=== PATIENT | female | born 1975 | race Caucasian/White ===

== ENCOUNTER → 2023-02-19 16:01 | Outpatient (BNVA) | payer OTHER, SELFPAY | PROVIDERS: PCP Student in an Organized Health Care Education/Training Program; Visit Provider Physician Assistant ==

== ENCOUNTER → 2023-03-04 08:12 | Outpatient (BNVA) | payer OTHER, SELFPAY | PROVIDERS: PCP Student in an Organized Health Care Education/Training Program; Visit Provider Surgery ==

== ENCOUNTER 2023-03-05 09:40 | Outpatient (REF) | payer OTHER, SELFPAY ==
--- NOTE | ~2023-03-05 | XR_ITS ---
EXAMINATION: XR CHEST CLINICAL INFORMATION: Reason for Exam E66.01 - Morbid (severe) obesity due to excess calories COMPARISON: None TECHNIQUE: 2 views of the chest FINDINGS: Lines and tubes: None. Clear lungs. No pleural effusion. No pneumothorax. Ectatic thoracic aorta. Normal cardiac silhouette. XR/XR chest 2V IMPRESSION: 1. Clear lungs. 2. Ectatic thoracic aorta.
--- NOTE | 2023-03-05 09:47 | ECG_ITS ---
Test Reason : E66.01 - Morbid (severe) obesity due to excess calories Blood Pressure : / mmHG Vent. Rate : 091 BPM Atrial Rate : 091 BPM P-R Int : 140 ms QRS Dur : 078 ms QT Int : 342 ms P-R-T Axes : 064 057 045 degrees QTc Int : 420 ms Normal sinus rhythm Normal ECG No previous ECGs available Referred By: Germán Keith Electronically Signed By:TABATHA HESS
[2023-03-05 10:10] LABS: MANUAL DIFF FLAG NO
[2023-03-05 11:09] LABS: Basophils Absolute Auto 0.1 X10*3/uL (0.0-0.2); Basophils Percent Auto 0.8 % (0-2); Eosinophils Absolute Auto 0.1 X10*3/uL (0.0-0.4); Eosinophils Percent Auto 2.2 % (0-4); Hematocrit 43.8 % (37.0-47.0); Hemoglobin 14.6 g/dl (12.0-16.0); Imm Gran Abs Auto 0.05 X10*3/uL (0.00-0.03); Imm Gran Pct Auto 0.8 % (0.0-0.4); Lymphocytes Absolute Auto 2.4 X10*3/uL (1.2-4.9); Lymphocytes Percent Auto 36.8 % (20-40); Mean Corpuscular HGB Conc 33.3 g/dl (31.0-35.0); Mean Corpuscular Hemoglobin 30.2 pg (27.0-33.0); Mean Corpuscular Volume 90.5 fL (80.0-98.0); Mean Platelet Volume 9.4 fL (9.4-12.3); Monocytes Absolute Auto 0.5 X10*3/uL (0.1-1.2); Monocytes Percent Auto 8.5 % (2-11); Neutrophils Absolute Auto 3.3 x10*3/uL (2.0-8.3); Neutrophils Percent Auto 50.9 % (45-73); Platelet Count 273 X10*3/uL (160-400); Red Blood Count 4.84 X10*6/uL (4.20-5.50); Red Cell Distribution Width 12.5 % (11.0-16.0); White Blood Count 6.4 X10*3/uL (4.8-10.8)
[2023-03-05 11:17] LABS: Estimated Average Glucose 103 mg/dL; Hemoglobin A1c % 5.2 %
[2023-03-05 12:10] LABS: Alanine Aminotransferase 26 U/L (0-31); Albumin Level 4.4 g/dL (3.5-5.0); Alkaline Phosphatase 71 U/L (39-117); Anion Gap 13 (12-20); Aspartate Amino Transferase 21 U/L (5-31); Bilirubin Total 0.5 mg/dL (0.0-1.0); Blood Urea Nitrogen 13 mg/dL (9-16); C Reactive Protein 1.02 mg/dL (< or = 0.50); Calcium 9.6 mg/dL (8.4-10.2); Carbon Dioxide 25 mmol/L (22-29); Chloride 104 mmol/L (96-108); Cholesterol 222 mg/dL; Estimated Glomerular Filt Rate > 60; Glucose Random 94 mg/dL (60-115); HDL Cholesterol 56 mg/dL; Iron 136 mcg/dL (30-160); LDL Cholesterol Calculated 134 mg/dl; Percent Iron Saturation 41 % (15-50); Potassium 3.9 mmol/L (3.3-5.1); Sodium 138 mmol/L (135-145); Total Iron Binding Capacity 328 mcg/dL (228-428); Total Protein 7.8 g/dL (6.5-8.0); Triglycerides 160 mg/dL; Unsaturated Iron Binding 192 ug/dL
[2023-03-05 12:36] LABS: Ferritin 152 ng/mL (10-250); Insulin 23 uU/mL (2-29); Vitamin D 25-OH Total 18.3 ng/mL (>30)
[2023-03-05 12:42] LABS: Folate 11.4 ng/mL (> or = 4.0); Vitamin B12 290 pg/mL (200-900)
[2023-03-07 13:19] LABS: Calcium (PTHI) 9.1 mg/dL (8.6-10.2); PTHI 47 pg/mL (16-77)
[2023-03-10 02:49] LABS: Zinc 75 mcg/dL (60-130)
[2023-03-11 06:23] LABS: Vitamin B1 10 nmol/L (8-30)
[2023-03-13 01:03] LABS: Vitamin A 43 mcg/dL (38-98)
== END 2023-03-05 09:41 | disposition home or self-care (01) ==
LOC: HO.LAB 09:40
PROVIDERS: PCP Student in an Organized Health Care Education/Training Program; Visit Provider Surgery
DX: E66.01 Morbid (severe) obesity due to excess calories (principal); I10 Essential (primary) hypertension; J45.909 Unspecified asthma, uncomplicated; K21.9 Gastro-esophageal reflux disease without esophagitis
CPT/HCPCS: 36415; 71046; 80053; 80061; 82306; 82607; 82728; 82746; 83036; 83525; 83540; 83970; 84425; 84443; 84590; 84630; 85025; 86140; 93005

== ENCOUNTER 2023-03-11 10:08 | Outpatient (REF) | payer OTHER, SELFPAY ==
--- NOTE | ~2023-03-11 | FL_ITS ---
EXAMINATION: XR FLUOROSCOPY UPPER GI WITH AIR CLINICAL INFORMATION: Obesity COMPARISON: None available. TECHNIQUE: Upper GI was performed using thin and thick barium and effervescent granules FINDINGS: Esophageal motility is normal. No hernia or reflux. The stomach and duodenum are normal. No fold thickening, mass, ulcer or stricture. FLUOROSCOPY TIME: 0.3 minutes DOSE AREA PRODUCT: 3.4 jensen per centimeter squared. Total dose 50 mg. 19 saved fluoroscopic images. FL/FL upper GI w air IMPRESSION: Unremarkable examination.
== END 2023-03-11 10:09 | disposition home or self-care (01) ==
LOC: HO.XRAY 10:08
PROVIDERS: Visit Provider Surgery
DX: E66.01 Morbid (severe) obesity due to excess calories (principal); K21.9 Gastro-esophageal reflux disease without esophagitis; I10 Essential (primary) hypertension; J45.909 Unspecified asthma, uncomplicated
CPT/HCPCS: 74246

== ENCOUNTER 2023-03-18 16:14 | Outpatient (AMB) | payer OTHER, SELFPAY ==
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
== END 2023-03-22 11:56 | disposition home or self-care (01) ==
LOC: HO.HBST 16:14
PROVIDERS: PCP Student in an Organized Health Care Education/Training Program; Visit Provider Counselor Mental Health
DX: F43.10 Post-traumatic stress disorder, unspecified (principal); E66.01 Morbid (severe) obesity due to excess calories; Z68.41 Body mass index [BMI] 40.0-44.9, adult
CPT/HCPCS: 90791

== ENCOUNTER → 2023-03-18 16:14 | Outpatient (BNVA) | payer OTHER, SELFPAY | PROVIDERS: PCP Student in an Organized Health Care Education/Training Program; Visit Provider Counselor Mental Health ==

== ENCOUNTER 2023-03-25 07:30 | Outpatient (REF) | payer OTHER, SELFPAY ==
--- NOTE | ~2023-03-25 | US_ITS ---
EXAMINATION: US COMPLETE ABDOMEN WITH LIVER ELASTOGRAPHY CLINICAL INFORMATION: Morbid obesity. COMPARISON: None available. TECHNIQUE: Real-time imaging of the abdominal viscera. Noninvasive ultrasound liver fibrosis assessment is performed using Wayne ElastPQ point quantification shear wave elastography (2D-SWE) with a C5-2 MHz transducer. Multiple elastography samples are obtained. FINDINGS: PANCREAS: Normal. The visualized pancreatic head and body are normal in appearance. The remainder of the pancreas is obscured from visualization by the overlying bowel gas. ABDOMINAL AORTA: The proximal, middle, and distal aortic segments are normal in caliber. INFERIOR VENA CAVA: Visualized portions are normal. LIVER: The liver demonstrates upper normal size, and normal contour and increased echogenicity. No focal lesion or intrahepatic biliary duct dilatation. The right lobe measures 16.9 cm in length. The left lobe measures 10.6 cm in length. Portal flow is towards the liver (hepatopetal). Shear wave liver elastography median stiffness is 1.52 m/s (reference: normal median stiffness is 1.3 m/s or less). IQR/median stiffness to assess sampling precision is 0.07 (reference: good quality data set is IQR/median stiffness of 0.15 or less). GALLBLADDER: Surgically absent. COMMON BILE DUCT: Normal in caliber measuring 0.4 cm in diameter. RIGHT KIDNEY: Normal. No hydronephrosis. No renal calculi or focal parenchymal lesions. The kidney measures 11.1 cm in maximum dimension. LEFT KIDNEY: Normal. No hydronephrosis. No renal calculi or focal parenchymal lesions. The kidney measures 11.1 cm in maximum dimension. SPLEEN: Normal. The spleen measures 10.0 cm in maximum dimension. FREE FLUID: None. US/US abdomen comp w elastography IMPRESSION: 1. There is generalized increase in hepatic echotexture, consistent with fatty infiltration or hepatocellular disease. Please correlate clinically. No focal hepatic mass or intrahepatic biliary dilatation is seen. 2. Liver elastography: In the absence of other known clinical signs, measurements rule out compensated advanced chronic liver disease. If there are known clinical signs, further testing may be needed for confirmation. 3. The gallbladder is surgically absent. REFERENCE: Society of Radiologists in Ultrasound Liver Stiffness Thresholds (2020): LIVER STIFFNESS THRESHOLDS: *Liver Stiffness equal or less than 1.3 m/s: High probability of being normal. *Liver Stiffness less than 1.7 m/s: In the absence of other known clinical signs, rules out compensated advanced chronic liver disease. *Liver Stiffness 1.7-2.1 m/s: Suggestive of compensated advanced chronic liver disease but need further test for confirmation. *Liver Stiffness over 2.1 m/s: Rules in compensated advanced chronic liver disease. *Liver Stiffness over 2.4 m/s: Suggestive of clinically significant portal hypertension. QUALITY OF DATA SET: *IQR/Median value equal or less than 0.15 implies a quality data set. *IQR/Median value over 0.15 implies a poor quality data set. SIGNIFICANT CHANGE FROM PRIOR EXAM: Significant change if liver stiffness measurement is 10% or greater from prior exam. OTHER CONSIDERATIONS: The stage of liver fibrosis may be overestimated in the setting of acute hepatitis, liver inflammation, elevated liver function tests, hepatic vascular congestion, obstructive cholestasis, non-fasting state, and infiltrative diseases such as amyloidosis and lymphoma. In some patients with NAFLD, the liver stiffness thresholds for compensated advanced chronic liver disease may be lower. In causes other than viral hepatitis and NAFLD, liver stiffness thresholds are not well established.
[2023-03-28 09:09] LABS: H Pylori Breath Test Negative (Negative)
== END 2023-03-25 07:31 | disposition home or self-care (01) ==
LOC: HO.US 07:30
PROVIDERS: PCP Student in an Organized Health Care Education/Training Program; Visit Provider Surgery
DX: Z11.2 Encounter for screening for other bacterial diseases (principal); E66.01 Morbid (severe) obesity due to excess calories; I10 Essential (primary) hypertension; J45.909 Unspecified asthma, uncomplicated; K21.9 Gastro-esophageal reflux disease without esophagitis
CPT/HCPCS: 36415; 76705; 76981; 83013; 99211

== ENCOUNTER 2023-03-25 15:53 | Outpatient (AMB) | payer OTHER, SELFPAY ==
[2023-03-25 16:08] VITALS: BP 138/81; PULSE 93; TEMP 36.1; O2SAT 98
--- NOTE | 2023-03-25 16:08 | MHC.NURWM ---
Intake VS Expanded 03/25/23 16:08 Height 5 ft 1.5 in BP 138/81 Blood Pressure Location Lt brachial Blood Pressure Position Left Lateral Pulse 93 Pulse Source Pulse Oximeter Temp 96.9 F Temperature Source Temporal Artery Scan Pulse Oximetry 98 Oxygen Delivery Method Room Air Intake Visit Reasons: H. Pylori Intake Note: Patient presents for collection of H Pylori breath test. Patient has been fasting for 1 hour (nothing to eat, drink, no chewing gum or smoking) has not taken any antacid medication for at least 2 weeks and has no allergies to artificial sweeteners.?? Allergies No Known Allergies Allergy (Verified 03/25/23 16:17) Nursing Note Patient presents for collection of H Pylori breath test. Patient has been fasting for 1 hour (nothing to eat, drink, no chewing gum or smoking) has not taken any antacid medication for at least 2 weeks and has no allergies to artificial sweeteners.???This test checks for an overgrowth of bacteria in your stomach. We all have bacteria but some may have more than others. It is treatable. if the test comes back negative there is nothing else to do. If the test result is positive we will treat you with 2 antibiotics and a medication to decrease the acid in your stomach (PPI) for 2 weeks. Two weeks after you have completed the treatment we will retest you to make sure the overgrowth has resolved. H pylori education: Process for specimen collection and reason for testing was explained to the patient. Specimen collection. Patient instructed to take a deep breath and then exhale into the blue bag, filling it up as much as possible. Patient instructed to drink a mixture of water and the artificial sweetener with a straw. A 15 minute wait period was observed. Patient instructed to take a deep breath and then exhale into the pink bag, filling it up as much as possible.? Coding Level of Care Code Est Pt Level 1 (18060) Diagnoses
== END 2023-03-25 16:18 | disposition home or self-care (01) ==
PROVIDERS: PCP Student in an Organized Health Care Education/Training Program; Visit Provider Physician Assistant Surgical
DX: Z00.00 Encounter for general adult medical examination without abnormal findings (principal)

== ENCOUNTER 2023-03-27 15:45 | Outpatient (AMB) | payer OTHER, SELFPAY ==
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
[2023-03-27 16:37] VITALS: BMI 42.6
== END 2023-03-27 16:36 | disposition home or self-care (01) ==
LOC: HO.HBS 16:22
PROVIDERS: PCP Student in an Organized Health Care Education/Training Program; Visit Provider Dietitian, Registered
DX: E66.01 Morbid (severe) obesity due to excess calories (principal)

== ENCOUNTER → 2023-03-27 15:45 | Outpatient (BNVA) | payer OTHER, SELFPAY | PROVIDERS: PCP Student in an Organized Health Care Education/Training Program; Visit Provider Dietitian, Registered | DX: E66.01 Morbid (severe) obesity due to excess calories (principal); Z71.3 Dietary counseling and surveillance | CPT/HCPCS: 97802 ==

== ENCOUNTER 2023-04-01 15:37 | Outpatient (AMB) | payer OTHER, SELFPAY ==
--- NOTE | 2023-04-01 10:52 | A.OFFVIS_ITS ---
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: No Allergies No Known Allergies Allergy (Verified 03/25/23 16:17) Medication List - Last Reconciled 04/01/23 by JENNIFER Ambriz albuterol sulfate 0.63 mg inhalation QID PRN cholecalciferol (vitamin D3) 125 mcg PO DAILY duloxetine 30 mg PO DAILY fluticasone furoate-vilanterol 100-25 mcg/dose (Breo Ellipta) 1 inh inhalation DAILY fluticasone propionate 50 mcg/actuation (Allergy Relief (fluticasone)) 1 spray intranasal BID gabapentin 300 mg PO DAILY ipratropium-albuterol 20-100 mcg/actuation (Combivent Respimat) 1 puff inhalation Q6H loratadine (Allergy Relief (loratadine)) 10 mg PO DAILY lorazepam 1 mg PO BEDTIME PRN losartan 50 mg PO DAILY mecobalamin (vitamin B12) 1,000 mcg sublingual DAILY montelukast 10 mg PO DAILY norethindrone-e.estradiol-iron 1 mg-10 mcg (24)/10 mcg (2) (Lo Loestrin Fe) 1 tab PO DAILY pantoprazole 20 mg PO DAILY HPI HPI Comments History of Present Illness Details 47 yo female returns to the office for pre-op planning She did not weight herself today. Weight from last week was 229.2 initial weight on 03/04/23 was 238.6 with a BMI of 44.3 Weight loss of 9.4 pounds or 4 % TBWL She states things are going well. She did have one episode of dietary indiscretion while on vacation last week. She states she was sometimes eating the last bar and sometimes not, but since returning from her vacation, she finds she is eating it. Discussed sticking to the plan. She will text me later this week to let me know if she does not want the last bar. Meal plan: 2 plant-based organic Orgain protein shakes (HALF scoop EACH in 8oz low fat unsweetened almond milk each) at 7am-9am and 10am-12pm, 2 protein bars (Zone Perfect protein bars) at 1pm-3pm, 4pm-6pm, dinner at 7pm (8 forks of protein and 8 forks of salad/vegetables) AND one more protein bar after dinner at 9pm-11pm. exercise plan: gym, treadmill, 5 days per week, 360 leixs per session. [facility] Medical History Anxiety Asthma Depression DJD (degenerative joint disease) GERD (gastroesophageal reflux disease) Hypertension Morbid obesity Surgical History Hx of cholecystectomy Hx of toe surgery Hx of wisdom tooth extraction Family History Mother Hypertension Osteoarthritis Father Diabetes Hypertension Son Asthma Son No problems noted. Social History Alcohol intake: current Alcohol intake frequency: holidays/special occasions only Patient Tobacco Use Status: Former Tobacco user Quit Date: 7YRS AGO Assessment & Plan Assessment & Plan (1) Morbid obesity: Code(s): E66.01 - Morbid (severe) obesity due to excess calories Plan: encouraged to be consistent with following the meal plan and to text me later this week to determine if she wants the last bar or not. if no bar, will adjust shakes Continue meal plan for now Encouraged to try both bike and elliptical to see if these will have less impact on her knees. reminded of upcoming appts Telehealth Telehealth Location of provider rendering services: practice address Location of patient: other Patient Identification confirmed using: Name, : Yes Telehealth method: video Patient verbally consented to treatment: Yes Patient verbally consented to billing insurance company: Yes Patient informed of any privacy concerns related to visit: Yes Minutes spent on Phone/Video with Pt.: 12 Coding Level of Care Code Tele Est Pt Level 3 (93483) Diagnoses Morbid obesity E66.01
[2023-04-01 14:17] VITALS: BMI 42.6
== END 2023-04-01 15:44 | disposition home or self-care (01) ==
LOC: HO.HBS 15:37
PROVIDERS: PCP Student in an Organized Health Care Education/Training Program; Visit Provider Physician Assistant Surgical
DX: E66.01 Morbid (severe) obesity due to excess calories (principal); Z68.41 Body mass index [BMI] 40.0-44.9, adult
CPT/HCPCS: 99213

== ENCOUNTER → 2023-04-01 15:37 | Outpatient (BNVA) | payer OTHER, SELFPAY | PROVIDERS: PCP Student in an Organized Health Care Education/Training Program; Visit Provider Physician Assistant Surgical ==

== ENCOUNTER 2023-04-11 15:23 | Outpatient (AMB) | payer OTHER, SELFPAY ==
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
== END 2023-04-11 16:18 | disposition home or self-care (01) ==
LOC: HO.HBST 15:23
PROVIDERS: PCP Student in an Organized Health Care Education/Training Program; Visit Provider Counselor Mental Health
DX: F43.10 Post-traumatic stress disorder, unspecified (principal); E66.01 Morbid (severe) obesity due to excess calories
CPT/HCPCS: 90832

== ENCOUNTER → 2023-04-11 15:23 | Outpatient (BNVA) | payer OTHER, SELFPAY | PROVIDERS: PCP Student in an Organized Health Care Education/Training Program; Visit Provider Counselor Mental Health ==

== ENCOUNTER 2023-04-24 08:09 | Outpatient (AMB) | payer OTHER, SELFPAY ==
--- NOTE | 2023-04-24 12:17 | MHC.OFFVISWM ---
Intake VS Expanded 04/24/23 12:22 Height 5 ft 1.5 in Weight 219 lb 6 oz BMI 40.8 Body Fat 122.7 Body Fat Percentage 55.9 Free Fat Mass 96.8 Visceral Mass 23 Water Mass 66.3 BMR 1,306 Intake Visit Reasons: TV Follow Up SWL Allergies No Known Allergies Allergy (Verified 03/25/23 16:17) HPI TV Follow Up SWL HPI Details Start time: 12pm, End time: 12.20pm ?I spent 15 minutes speaking with the patient on the phone plus an additional 5 minutes reviewing and updating records for a total of 20 minutes HPI Comments History of Present Illness Details Overall weight loss: 19lbs, or 7.96% TBWL Is doing 2 Orgain protein shakes (1/2 scoop in almond milk), 3 Zone Perfect protein bars and one meal (8 forks of protein and 8 forks of salad or vegetables) Exercise: is doing treadmill x5/wk for 400 calories PFSH Medical History Anxiety Asthma Depression DJD (degenerative joint disease) GERD (gastroesophageal reflux disease) Hypertension Morbid obesity Surgical History Hx of cholecystectomy Hx of toe surgery Hx of wisdom tooth extraction Family History Mother Hypertension Osteoarthritis Father Diabetes Hypertension Son Asthma Son No problems noted. Social History Alcohol intake: current Alcohol intake frequency: holidays/special occasions only Patient Tobacco Use Status: Former Tobacco user Quit Date: 7YRS AGO Physical Exam Vital Signs: BMI result Body Mass Index 40.8 Assessment & Plan Assessment & Plan (1) Morbid obesity: Code(s): E66.01 - Morbid (severe) obesity due to excess calories Plan: 1. Continue same nutritional plan of 2 Orgain protein shakes (1/2 scoop in almond milk), 3 Zone Perfect protein bars and one meal (8 forks of protein and 8 forks of salad or vegetables) 2. Exercise: continue treadmill x5/wk for 400 calories 3. Continue to send me weight measurements weekly on Tuesdays Telehealth Telehealth Location of provider rendering services: practice address Location of patient: address on file Patient Identification confirmed using: Name, : Yes Telehealth method: voice only Patient verbally consented to treatment: Yes Patient verbally consented to billing insurance company: Yes Patient informed of any privacy concerns related to visit: Yes Minutes spent on Phone/Video with Pt.: 20 Coding Level of Care Code Tele Est Pt Level 3 (89883) Diagnoses Morbid obesity E66.01 Time Spent (min) 20
[2023-04-24 12:22] VITALS: BMI 40.8
== END 2023-04-24 14:46 | disposition home or self-care (01) ==
LOC: HO.HBS 08:09
PROVIDERS: PCP Student in an Organized Health Care Education/Training Program; Visit Provider Surgery
DX: E66.01 Morbid (severe) obesity due to excess calories (principal); Z68.41 Body mass index [BMI] 40.0-44.9, adult
CPT/HCPCS: 99213

== ENCOUNTER → 2023-04-24 08:09 | Outpatient (BNVA) | payer OTHER, SELFPAY | PROVIDERS: PCP Student in an Organized Health Care Education/Training Program; Visit Provider Surgery ==

== ENCOUNTER 2023-05-22 08:00 | Outpatient (AMB) | payer OTHER, SELFPAY ==
--- NOTE | 2023-05-22 09:27 | A.OFFVIS_ITS ---
Intake VS Expanded 05/22/23 09:35 Height 5 ft 1.5 in Weight 207 lb 8 oz BMI 38.6 Body Fat 108.8 Body Fat Percentage 52.4 Free Fat Mass 98.8 Visceral Mass 21 Water Mass 67.7 BMR 1,328 Intake Visit Reasons: TV Follow Up SWL Allergies No Known Allergies Allergy (Verified 03/25/23 16:17) HPI TV Follow Up SWL HPI Details Start time: 9.18am, End time: 9.38am ?I spent 15 minutes speaking with the patient on the phone plus an additional 5 minutes reviewing and updating records for a total of 20 minutes HPI Comments History of Present Illness Details Overall weight loss: 30.8lbs, or 12.91% TBWL Is doing 2 Orgain protein shakes (1/2 scoop in 8oz almond milk), 3 Zone Perfect protein bars and one meal (8 forks of protein and 8 forks of salad or vegetables) Exercise: is doing treadmill (incline 2-8) for 400 calories for 5 days per week PFSH Medical History Anxiety Asthma Depression DJD (degenerative joint disease) GERD (gastroesophageal reflux disease) Hypertension Morbid obesity Surgical History Hx of cholecystectomy Hx of toe surgery Hx of wisdom tooth extraction Family History Mother Hypertension Osteoarthritis Father Diabetes Hypertension Son Asthma Son No problems noted. Social History Alcohol intake: current Alcohol intake frequency: holidays/special occasions only Patient Tobacco Use Status: Former Tobacco user Quit Date: 7YRS AGO Assessment & Plan Assessment & Plan (1) Obesity: Code(s): E66.9 - Obesity, unspecified Plan: 1. Plan for lap sleeve gastrectomy including upper GI endoscopy. All tests has been completed and reviewed and the patient is cleared for the surgery. ?If diaphragmatic or ventral hernias are present at time of surgery, these will be repaired laparoscopically as well. Risks and complications were discussed in detail including possible conversion to an open procedure, anastomotic leak, bleeding requiring transfusion, small bowel obstruction, , DVT and pulmonary embolism, cardiac, or pulmonary complications, as computer terminal operator com plications such as anastomotic ulcer, insufficient weight loss and vitamin deficiencies. I emphasized the importance of close follow-up, adherence to instructions and good communication. So far she has proven to be an excellent communicator and very compliant with all our directions accomplishing a great weight loss. I believe that she is an excellent candidate and she is ready. 2. Continue same nutritional plan of protein shakes (1/2 scoop in 8oz almond milk), 3 Zone Perfect protein bars and one meal (8 forks of protein and 8 forks of salad or vegetables) 3. Exercise: continue treadmill (increase incline to 3-9) for 400 calories for 5 days per week 4. Continue to send me weight measurements weekly on Tuesdays 5. Emphasized the importance of monitoring the blood pressure daily in am when wakes up and two more times throughout the day. If systolic blood pressure is 110 mmHg, or less I explained to the patient that needs to notify us. Also I explained the symptoms of orthostatic hypotension (dizziness and lightheadedness) for which the patient also needs to notify me. (2) BMI 39.0-39.9,adult: Code(s): Z68.39 - Body mass index [BMI] 39.0-39.9, adult Telehealth Telehealth Location of provider rendering services: practice address Location of patient: address on file Patient Identification confirmed using: Name, : Yes Telehealth method: voice only Patient verbally consented to treatment: Yes Patient verbally consented to billing insurance company: Yes Patient informed of any privacy concerns related to visit: Yes Minutes spent on Phone/Video with Pt.: 20 Coding Level of Care Code Tele Est Pt Level 3 (52226) Diagnoses Obesity E66.9 BMI 39.0-39.9,adult Z68.39 Time Spent (min) 20
[2023-05-22 09:35] VITALS: BMI 38.6
== END 2023-05-22 09:39 | disposition home or self-care (01) ==
LOC: HO.HBS 08:00
PROVIDERS: PCP Student in an Organized Health Care Education/Training Program; Visit Provider Surgery
DX: E66.9 Obesity, unspecified (principal); Z68.39 Body mass index [BMI] 39.0-39.9, adult
CPT/HCPCS: 99213

== ENCOUNTER → 2023-05-22 08:00 | Outpatient (BNVA) | payer OTHER, SELFPAY | PROVIDERS: PCP Student in an Organized Health Care Education/Training Program; Visit Provider Surgery ==

== ENCOUNTER 2023-06-19 08:01 | Outpatient (AMB) | payer OTHER, SELFPAY ==
--- NOTE | 2023-06-19 10:40 | MHC.OFFVISWM ---
Intake VS Expanded 06/19/23 10:54 Height 5 ft 1.5 in Weight 201 lb BMI 37.4 Body Fat % 50.3 Body Fat Mass 101.1 Fat Free Mass 99.8 Visceral Fat Rating 20 Body Water % 34.1 Body Water Mass 68.5 Basal Metabolic Rate/Score 1,352 Intake Visit Reasons: TV Pre Op LSG 07/04/23 Allergies No Known Allergies Allergy (Verified 06/19/23 10:41) Medication List - Last Reconciled 06/19/23 by Germán Keith MD cholecalciferol (vitamin D3) 125 mcg PO DAILY duloxetine 90 mg PO DAILY fluticasone furoate-vilanterol 100-25 mcg/dose (Breo Ellipta) 1 inh inhalation DAILY fluticasone propionate 50 mcg/actuation (Allergy Relief (fluticasone)) 1 spray intranasal DAILY gabapentin 300 mg PO BEDTIME ipratropium-albuterol 0.5 mg-3 mg(2.5 mg base)/3 mL 3 mL inhalation QID PRN ipratropium-albuterol 20-100 mcg/actuation (Combivent Respimat) 1 puff inhalation Q6H PRN loratadine (Allergy Relief (loratadine)) 10 mg PO DAILY lorazepam 1 mg PO BEDTIME losartan 50 mg PO DAILY mecobalamin (vitamin B12) 1,000 mcg sublingual DAILY montelukast 10 mg PO BEDTIME ondansetron 4 mg PO Q12H pantoprazole 40 mg PO DAILY polyethylene glycol 3350 (Miralax) 17 grams PO DAILY sucralfate 10 mL PO BID HPI TV Pre Op LSG 07/04/23 HPI Details Start time: 10.33am, End time: 11.07am ?I spent 29 minutes speaking with the patient on the phone plus an additional 5 minutes reviewing and updating records for a total of 34 minutes HPI Comments History of Present Illness Details Overall weight loss: 37.6lbs, or 15.76% TBWL Is doing 2 Orgain protein shakes (1/2 scoop in 8oz almond milk), 3 Zone Perfect protein bars and one meal (8 forks of meat and 8 forks of salad or vegetables) Exercise: Gym doing treadmill 5 days per week for 400 calories each time PFSH Medical History (Updated 06/19/23 @ 10:37 by Germán Keith MD) Arthritis Asthma DJD (degenerative joint disease) Anxiety Depression GERD (gastroesophageal reflux disease) Hypertension Morbid obesity Surgical History (Updated 06/12/23 @ 14:12 by June La RN) Hx of cholecystectomy Hx of wisdom tooth extraction Hx of toe surgery Family History Mother Hypertension Osteoarthritis Father Diabetes Hypertension Son Asthma Son No problems noted. Social History Alcohol intake: current Alcohol intake frequency: holidays/special occasions only Patient Tobacco Use Status: Former Tobacco user Quit Date: 7YRS AGO Assessment & Plan Assessment & Plan (1) Obesity: Code(s): E66.9 - Obesity, unspecified Plan: 1. Plan for lap sleeve gastrectomy including upper GI endoscopy. All tests has been completed and reviewed and the patient is cleared for the surgery. ?If diaphragmatic or ventral hernias are present at time of surgery, these will be repaired laparoscopically as well. Risks and complications were discussed in detail including possible conversion to an open procedure, anastomotic leak, bleeding requiring transfusion, small bowel obstruction, , DVT and pulmonary embolism, cardiac, or pulmonary complications, as intermediate complications such as anastomotic ulcer, insufficient weight loss and vitamin deficiencies. I emphasized the importance of close follow-up, adherence to instructions and good communication. So far she has proven to be an excellent communicator and very compliant with all our directions accomplishing a great weight loss. I believe that she is an excellent candidate and she is ready. 2. Preop prescriptions were provided and explained the purpose of each one. Need to be purchased preop. Start Pantoprazole now as you get it from the pharmacy, 1 pill per day. Sucralfate and Zofran are for after surgery as needed. 3. Bowel prep: please do 7 packets ?of Miralax mixing each one with a an 8oz glass of water, crystal light, gatorade zero, or propel ?on 07/02/23 and the same amount on 07/03/23. Continue the protein shakes during? the bowel prep. 4. Needs to purchase 1oz medicine cups . 5. Needs to purchase Children's liquid Tylenol for postop pain control. 6. She needs to stop the Gabapentin on 06/30/23. Avoid aspirin, motrin, Advil, Aleve, Ibuprofen, Naproxyn. Tylenol is OK. 7. She needs to purchase the Celebrate 4:1 protein shakes from the hospital's gift shop. 8. Will do basic preop blood work-up any day between Saturday06/24/23 and Saturday06/28/23 fasting for 12 hours and is scheduled to see the Anesthesiologist prior to the day of surgery. 9. Importance of adherence to postop folllow-up and recommendations was underscored and she understands that. 10. Stop food and bars as of Saturday06/26/23 and continue with 3 ORGAIN protein shakes (ONE scoop EACH in 8oz almond milk) at 8am-10am, 11am-1pm and 2pm-4pm AND TWO more ORGAIN protein shakes with TWO scoops in 8oz of almond milk at 5pm-7pm and 8pm-10pm 11. No soups, broths or V8 12. The patient's?medical?history has been reviewed and they are considered low risk for post op DVT and therefore DVT prophylaxis is not considered necessary. Travel after surgery was reviewed. The patient has not disclosed any travel plans during the first 30 days after surgery and they have been advised that within the first 30 days after surgery any bus, plane, train or car travel over 2 hours in duration is contraindicated due to the possibility of developing blood clots from immobility. Any travel, needs to include periods of ambulation of 10 minutes in duration every 2 hours.? Patient was instructed to discuss any plans for travel during this period with their bariatric surgeon.? 13. Please take at the day of surgery the following medications: LOSARTAN with a sip of water 14. Stop any control pills and don't use them for one month after surgery 15. Absolutely no smoking or vaping, or marijuana until the surgery and for at least the first 4 weeks. Only nicotine patches are allowed. 16. Send me weight measurements on 06/25/23 and then on 07/04/23, the day of surgery before you go to the hospital. 17. Avoid any steroids by mouth for any reason. Let me know if someone prescribes them to you (2) BMI 38.0-38.9,adult: Code(s): Z68.38 - Body mass index [BMI] 38.0-38.9, adult (3) Asthma: Code(s): J45.909 - Unspecified asthma, uncomplicated (4) Hypertension: Code(s): I10 - Essential (primary) hypertension (5) GERD (gastroesophageal reflux disease): Code(s): K21.9 - Gastro-esophageal reflux disease without esophagitis Orders: Orders TSH reflex Free T4 Today E66.9 - Obesity, unspecified, Z68.38 - Body mass index [BMI] 38.0-38.9, adult Prothrombin Time INR Today E66.9 - Obesity, unspecified, Z68.38 - Body mass index [BMI] 38.0-38.9, adult Type and Screen Today E66.9 - Obesity, unspecified, Z68.38 - Body mass index [BMI] 38.0-38.9, adult C Reactive Protein Today E66.9 - Obesity, unspecified, Z68.38 - Body mass index [BMI] 38.0-38.9, adult Lipid Panel Today E66.9 - Obesity, unspecified, Z68.38 - Body mass index [BMI] 38.0-38.9, adult Hemoglobin A1c Today E66.9 - Obesity, unspecified, Z68.38 - Body mass index [BMI] 38.0-38.9, adult Comprehensive Met. Panel Today E66.9 - Obesity, unspecified, Z68.38 - Body mass index [BMI] 38.0-38.9, adult Partial Thromboplastin Time Today E66.9 - Obesity, unspecified, Z68.38 - Body mass index [BMI] 38.0-38.9, adult Complete Blood Count Auto Diff Today E66.9 - Obesity, unspecified, Z68.38 - Body mass index [BMI] 38.0-38.9, adult Insulin Today E66.9 - Obesity, unspecified, Z68.38 - Body mass index [BMI] 38.0-38.9, adult Medications: New ondansetron 4 mg PO Q12H 20 tabs 0RF nausea and vomiting R11.0 - Nausea pantoprazole 40 mg PO DAILY 30 tabs 2RF K21.9 - Gastro-esophageal reflux disease without esophagitis sucralfate 10 mL PO BID 400 mL 2RF K21.9 - Gastro-esophageal reflux disease without esophagitis polyethylene glycol 3350 (Miralax) Mix each packet with 8oz of water, Crystal light, or Gatorade zero, or Propel and do 7 packets on 07/02/23 and another 7 packets on 07/03/23 17 grams PO DAILY 14 ea 0RF Z01.818 - Encounter for other preprocedural examination Telehealth Telehealth Location of provider rendering services: practice address Location of patient: address on file Patient Identification confirmed using: Name, : Yes Telehealth method: voice only Patient verbally consented to treatment: Yes Patient verbally consented to billing insurance company: Yes Patient informed of any privacy concerns related to visit: Yes Minutes spent on Phone/Video with Pt.: 34 Coding Level of Care Code Tele Est Pt Level 4 (45877) Diagnoses Obesity E66.9 BMI 38.0-38.9,adult Z68.38 Asthma J45.909 Hypertension I10 GERD (gastroesophageal reflux disease) K21.9 Time Spent (min) 34
[2023-06-19 10:54] VITALS: BMI 37.4
== END 2023-06-19 11:08 | disposition home or self-care (01) ==
LOC: HO.HBS 08:01
PROVIDERS: PCP Student in an Organized Health Care Education/Training Program; Visit Provider Surgery
DX: E66.9 Obesity, unspecified (principal); Z68.38 Body mass index [BMI] 38.0-38.9, adult; J45.909 Unspecified asthma, uncomplicated; I10 Essential (primary) hypertension; K21.9 Gastro-esophageal reflux disease without esophagitis
CPT/HCPCS: 99214

== ENCOUNTER → 2023-06-19 08:01 | Outpatient (BNVA) | payer OTHER, SELFPAY | PROVIDERS: PCP Student in an Organized Health Care Education/Training Program; Visit Provider Surgery ==

== ENCOUNTER 2023-06-26 07:33 | Outpatient (REF) | payer OTHER, SELFPAY ==
[2023-06-26 10:10] LABS: Alanine Aminotransferase 28 U/L (0-31); Albumin Level 4.3 g/dL (3.5-5.0); Alkaline Phosphatase 72 U/L (39-117); Anion Gap 14 (12-20); Aspartate Amino Transferase 21 U/L (5-31); Bilirubin Total 0.3 mg/dL (0.0-1.0); Blood Urea Nitrogen 15 mg/dL (9-16); C Reactive Protein 1.06 mg/dL (< or = 0.50); Calcium 9.9 mg/dL (8.4-10.2); Carbon Dioxide 21 mmol/L (22-29); Chloride 108 mmol/L (96-108); Cholesterol 227 mg/dL (<200); Estimated Glomerular Filt Rate > 60; Glucose Random 100 mg/dL (60-115); HDL Cholesterol 46 mg/dL (>40); LDL Cholesterol Calculated 157 mg/dL (<100); Potassium 3.9 mmol/L (3.3-5.1); Sodium 139 mmol/L (135-145); Total Protein 7.5 g/dL (6.5-8.0); Triglycerides 123 mg/dL (<150)
[2023-06-26 10:25] LABS: Insulin 20 uU/mL (2-29); TSH reflex Free T4 1.21 uIU/mL (0.32-4.0)
== END 2023-06-26 07:34 | disposition home or self-care (01) ==
LOC: HO.LAB 07:33
PROVIDERS: PCP Student in an Organized Health Care Education/Training Program; Visit Provider Surgery
DX: E66.9 Obesity, unspecified (principal); Z68.38 Body mass index [BMI] 38.0-38.9, adult
CPT/HCPCS: 36415; 80053; 80061; 83036; 83525; 84443; 85025; 85610; 85730; 86140

== ENCOUNTER 2023-07-04 06:07 | Inpatient (IN) | payer OTHER, SELFPAY ==
--- NOTE | 2023-06-29 22:16 | MHC.SHP ---
Pre-Procedural Eval Section A Date of Service: 06/29/23 The patient is an INPATIENT: No The History & Physical has been completed within 30 days and I have reviewed it.: Yes Section B Chief Complaint: Obesity, unspecified Relevant Family History (Specify if Yes): Yes Relevant Social History: None Present Medications: None Medical History: No relevant PMH History of Previous Operations: No relevant previous surgery Allergies: Allergies Allergy/AdvReac Type Severity Reaction Status Date / Time No Known Allergies Allergy Verified 06/19/23 10:41 Review of Systems Sugical H&P ROS: Negative: Constitution, Cardiovascular, Respiratory, Neurological, Psychiatric, Hem-Onc, Allergic/Immunologic, Gastrointestinal, Genitourinary, Musculoskeletal, Integumentary, Endocrine and Eyes/Ears/Nose/Throat Exam Surgical H&P Exam: Normal: HEENT, Normal: Heart, Normal: Lungs, Normal: Extremities, Normal: Abdomen, Normal: Skin and Normal: Neurological Plan Diagnosis/Plan: Unchanged I have reviewed the history and physical and performed a pertinent physical examination on my patient. No changes have occurred unless specified. Time Spent With Patient Time: Total time managing care of this patient today ____ minutes.
--- NOTE | 2023-07-03 10:27 | HO.ANESPROP2 ---
Documented by User: Rosa Hurt NP 07/03/23 10:30 HPI - Anesthesia Eval Consult details Narrative: 47yo F for Gastrectomy Sleeve, EGD, possible diaphragmatic hernia, possible ventral hernia, possible open PMFSH Active Problems Active Problems: All Active Problems (Updated 06/19/23 @ 10:37 by Germán Keith MD) BMI 38.0-38.9,adult (Acute) BMI 39.0-39.9,adult (Acute) Obesity (Acute) Post traumatic stress disorder (PTSD) (Acute) Vitamin B 12 deficiency (Acute) Vitamin D deficiency (Acute) Asthma (Acute) DJD (degenerative joint disease) (Acute) Anxiety (Acute) Depression (Acute) GERD (gastroesophageal reflux disease) (Acute) Hypertension (Acute) Morbid obesity (Acute) Past Medical History Medical History (Updated 07/04/23 @ 09:50 by Germán Keith MD) Arthritis Asthma DJD (degenerative joint disease) Anxiety Depression GERD (gastroesophageal reflux disease) Hypertension Morbid obesity Family History Family History Mother Hypertension Osteoarthritis Father Diabetes Hypertension Son Asthma Son No problems noted. Surgical History Surgical History (Updated 07/04/23 @ 09:57 by JENNIFER Ambriz) Hx of cholecystectomy Hx of wisdom tooth extraction Hx of toe surgery Social History Social History Household Members: None Housing: House Do you presently have visiting nurse or other home services: No Alcohol intake: current Alcohol intake frequency: holidays/special occasions only Patient Tobacco Use Status: Former Tobacco user Quit Date: 7YRS AGO Smoked in Last 30 Days: No Use of substances other than those prescribed or required for medical reasons: No Currently Displaying Signs/Symptoms of Drug Intoxication Withdrawal: No Have you been hit, kicked, punched, or otherwise hurt by someone within the past year? If so, by whom?: No Do you feel safe in your current relationship?: No Is there a partner from a previous relationship who is making you feel unsafe now?: No Are you made to feel afraid or neglected: No Are you DNR?: No Advance Directives: No Advance Directives Information Provided: Yes Do you have thoughts of harming others: None Do you have a plan to hurt others: No Plan Recently lost weight without trying: No Eating poorly because of decreased appetite: No Nutrition Risks: No Nutritional Risk Patient : No : No Poor oral hygiene: No Meds Allergies Allergy/AdvReac Type Severity Reaction Status Date / Time No Known Allergies Allergy Verified 07/04/23 06:16 Home Medications Medication Instructions Recorded Confirmed Last Taken Type duloxetine 30 mg capsule,delayed 90 mg PO DAILY 03/04/23 07/04/23 07/03/23 History release fluticasone furoate 100 1 inh inhalation DAILY 03/04/23 06/19/23 07/04/23 History mcg-vilanterol 25 mcg/dose inhalation powder (Breo Ellipta) fluticasone propionate 50 1 spray intranasal DAILY 03/04/23 07/04/23 07/03/23 History mcg/actuation nasal spray,suspension (Allergy Relief (fluticasone)) gabapentin 300 mg capsule 300 mg PO BEDTIME 03/04/23 07/04/23 06/29/23 History ipratropium 20 mcg-albuterol 100 1 puff inhalation Q6H PRN 03/04/23 07/04/23 07/04/23 History mcg/actuation mist for inhalation Shortness Of Breath (Combivent Respimat) loratadine 10 mg tablet (Allergy 10 mg PO DAILY 03/04/23 07/04/23 07/03/23 History Relief (loratadine)) lorazepam 1 mg tablet 1 mg PO BEDTIME 03/04/23 07/04/23 07/03/23 History losartan 50 mg tablet 50 mg PO DAILY 03/04/23 07/04/23 07/04/23 04:30 History montelukast 10 mg tablet 10 mg PO BEDTIME 03/04/23 07/04/23 07/03/23 History ipratropium 0.5 mg-albuterol 3 mg 3 ml inhalation QID PRN Shortness 06/12/23 06/19/23 Unknown History (2.5 mg base)/3 mL nebulization Of Breath Or Wheezing soln Exam Exam Date and Time: July 03, 2023 1027 Pertinent Lab Results Pertinent Lab Results: Laboratory Tests 06/26/23 08:00 Blood Type O Positive Antibody Screen NEGATIVE Laboratory Tests 06/26/23 08:07 WBC 6.5 Hgb 14.3 Hct 42.1 Plt Count 239 Sodium 139 Potassium 3.9 Chloride 108 Carbon Dioxide 21 L BUN 15 Creatinine 0.69 Narrative Narrative: EKG 02/2023 Vent. Rate : 091 BPM Atrial Rate : 091 BPM P-R Int : 140 ms QRS Dur : 078 ms QT Int : 342 ms P-R-T Axes : 064 057 045 degrees QTc Int : 420 ms Normal sinus rhythm Normal ECG No previous ECGs available Assessment and Plan Assessment Anesthesia Assessment: Chart Reviewed Documented by User: Phil Billy MD 07/04/23 18:02 [facility] Past Medical History Medical History (Updated 07/04/23 @ 09:50 by Germán Keith MD) Arthritis Asthma DJD (degenerative joint disease) Anxiety Depression GERD (gastroesophageal reflux disease) Hypertension Morbid obesity Functional capacity: independent ambulation Family History Family History Mother Hypertension Osteoarthritis Father Diabetes Hypertension Son Asthma Son No problems noted. Family history of problems with anesthesia: No Surgical History Surgical History (Updated 07/04/23 @ 09:57 by JENNIFER Ambriz) Hx of cholecystectomy Hx of wisdom tooth extraction Hx of toe surgery History of Problems with Anesthesia: No Social History Social History Household Members: None Housing: House Do you presently have visiting nurse or other home services: No Alcohol intake: current Alcohol intake frequency: holidays/special occasions only Patient Tobacco Use Status: Former Tobacco user Quit Date: 7YRS AGO Smoked in Last 30 Days: No Use of substances other than those prescribed or required for medical reasons: No Currently Displaying Signs/Symptoms of Drug Intoxication Withdrawal: No Have you been hit, kicked, punched, or otherwise hurt by someone within the past year? If so, by whom?: No Do you feel safe in your current relationship?: No Is there a partner from a previous relationship who is making you feel unsafe now?: No Are you made to feel afraid or neglected: No Are you DNR?: No Advance Directives: No Advance Directives Information Provided: Yes Do you have thoughts of harming others: None Do you have a plan to hurt others: No Plan Recently lost weight without trying: No Eating poorly because of decreased appetite: No Nutrition Risks: No Nutritional Risk Patient : No : No Poor oral hygiene: No Meds Allergies Allergy/AdvReac Type Severity Reaction Status Date / Time No Known Allergies Allergy Verified 07/04/23 06:16 Home Medications Medication Instructions Recorded Confirmed Last Taken Type duloxetine 30 mg capsule,delayed 90 mg PO DAILY 03/04/23 07/04/23 07/03/23 History release fluticasone furoate 100 1 inh inhalation DAILY 03/04/23 06/19/23 07/04/23 History mcg-vilanterol 25 mcg/dose inhalation powder (Breo Ellipta) fluticasone propionate 50 1 spray intranasal DAILY 03/04/23 07/04/23 07/03/23 History mcg/actuation nasal spray,suspension (Allergy Relief (fluticasone)) gabapentin 300 mg capsule 300 mg PO BEDTIME 03/04/23 07/04/23 06/29/23 History ipratropium 20 mcg-albuterol 100 1 puff inhalation Q6H PRN 03/04/23 07/04/23 07/04/23 History mcg/actuation mist for inhalation Shortness Of Breath (Combivent Respimat) loratadine 10 mg tablet (Allergy 10 mg PO DAILY 03/04/23 07/04/23 07/03/23 History Relief (loratadine)) lorazepam 1 mg tablet 1 mg PO BEDTIME 03/04/23 07/04/23 07/03/23 History losartan 50 mg tablet 50 mg PO DAILY 03/04/23 07/04/23 07/04/23 04:30 History montelukast 10 mg tablet 10 mg PO BEDTIME 03/04/23 07/04/23 07/03/23 History ipratropium 0.5 mg-albuterol 3 mg 3 ml inhalation QID PRN Shortness 06/12/23 06/19/23 Unknown History (2.5 mg base)/3 mL nebulization Of Breath Or Wheezing soln Exam Airway Mallampati Class: IV Loose/Missing/Broken Teeth: Yes Assessment and Plan Assessment Anesthesia Assessment: Anesthesia Plan Discussed Final Anesthetic Review Family History of Problems with Anesthesia: No History of Problems with Anesthesia: No NPO: Yes ASA Class: III Final Preanesthetic Review: Meds/Allgs Chart Reviewed, Consent Obtained/Reviewed and Anes Risks/Benef Reviewed Patient Risk: Intermediate Procedure Risk: Intermediate Anesthetic Plan Anesthetic Plan: GA and Agree w/ Assess. and Plan Disposition: Standard PACU
[2023-07-04] VITALS (10 sets, daily range): BP systolic 119–157; BP diastolic 56–88; PULSE 94–110; RESP 14–18; TEMP 36.2–36.5; O2SAT 96–100; BMI 34.6; BMI 37.3
--- OUTSIDE RECORDS SUMMARY | 2023-07-04 06:12 | XMS_ITS | Patient Health Record ---
Author Name Unknown Organization [address] [facility] Address [address] [facility] [address] [place] [address] ALLERGIES No Known Allergies REASON FOR REFERRAL No Information MEDICATIONS Medication SIG (Take, Route, Fr equency, Duration) Notes Start Date End Date Status Abilify 5 MG 1 tablet Orally Once a day Active PARoxetine HCl 30 MG 2 tablet in the mor anna Orally Once a day Active SOCIAL HISTORY Tobacco Use: Social History Observation Description Date Details (start date - stop date) Never Smoker NA - NA Sex Assigned At : Social History Observation Description Sex Assigned At Unknown Tobacco Use/Smoking Question Answer Notes Are you a nonsmoker Alcohol Screen (Audit-C) Question Answer Notes Did you have a drink containing alcohol in the p ast year? No Points 0 Interpretation Negative Tobacco use other than smoking: Question Answer Notes Are you an other tobacco user? No PLAN OF TREATMENT No Information Insurance Providers Payer Name Payer Address Payer Phone Subscriber Number Group Number Insured Name Patient Relationship to Insured Coverage Start Date Coverage End Date [facility] [address] [place] [address] [id number] Yolie Hoffmann Self - patient is the insured MEDICAL (GENERAL) HISTORY Medical History History ICD Code asthma anxiety depression weight gain Surgical History Surgery Date(Month/Year) wisdom teeth extraction cholecystectomy BIG surgery
[2023-07-04 06:44] LABS: UPreg QC Valid YES; Urine Pregnancy NEGATIVE (NEGATIVE)
[2023-07-04] MEDS: Lactated Ringers 1,000 ML 100 ML IVCONT ×3 (06:44→20:06)
[2023-07-04] MEDS: Lactated Ringers 1,000 ML 999 ML IV (06:44)
[2023-07-04] MEDS: Aprepitant 32 MG/4.4 ML VIAL IVPUSH (06:49)
--- NOTE | 2023-07-04 07:34 | P.BOP_ITS ---
Brief Operative Note Date of Service: 07/04/23 Pre-op diagnosis: Morbid obesity with comorbidities Post-op diagnosis: same Procedure: INITIAL PATIENT BMI ON PRESENTATION AT OUR OFFICE: 44.3 kg/m2 LAST BMI BEFORE SURGERY: 37.7 kg/m2 COMORBIDITIES: hypertension, DJD, GERD, asthma, depression, anxiety, liver steatosis, liver fibrosis ?The patient presented to the Weight Management Program with significant obesity that was negatively impacting the patient's comorbidities as listed above.? The program is a phased program with a special focus on preoperative medical weight management to promote substantial weight loss and prepare the patients for the second phase of the program: bariatric surgery. The patient participated in an intensive weekly lifestyle ?intervention and exercise program during which the patient ?has lost between the initial office visit and the last preoperative visit 41.8lbs, or 17.8% of initial actual body weight. It was deemed appropriate for the patient to now have bariatric surgery. In light of the current Covid-19 pandemic and the well documented strong association of obesity and increased risk of worse outcomes if infected with Covid-19 (REFERENCES: https://pubmed.ncbi.nlm.nih.gov/20248580/ ,? https://pubmed.ncbi.nlm.nih.gov/31706672/ ), any delay in undergoing bariatric surgery may lead to the patient's worsening health condition and increased?risk of more severe Covid-19 disease if infected. In addition a recent?study from [facility] published in [facility] on 09/11/2021 ([email or web address]) found that, among patients with obesity, substantial weight loss achieved with surgery was associated with improved outcomes of COVID-19 infection. The findings suggest that obesity can be a modifiable risk factor for the severity of COVID-19 infection. In addition, the patient met the BMI-criteria for bariatric surgery based on the BMI on initial presentation. The patient should not be penalized for achieving such weight loss because ?it is not sustainable long-term without surgical intervention and it was achieved in preparation for bariatric surgery ?under my direction and based on my published research ([email or web address] and? https://www.soard.org/article/[email or web address](00)82517-X/pdf ) ?that a 10% preo perative weight loss improves long-term weight loss after surgery and reduces perioperative complications.? Insurance carriers such as [facility] have endorsed my recommendations ?and have included in their policies criteria to include a 10% preoperative weight loss requirement. PROCEDURE: Esophago-gastroscopy, laparoscopic lysis of adhesions, laparoscopic sleeve gastrectomy and laparoscopic gastropexy INDICATIONS: This is a 47 year-old female who was electively scheduled for laparoscopic, possibly open sleeve gastrectomy. The risks and complications of the procedure were discussed with the patient in advance, particularly the possibility of ; pulmonary embolism; staple line leak; bleeding; GERD; cardiac, pulmonary, or renal complications; as well as long-term problems such as insufficient weight loss, vitamin deficiency, strictures, or ulcers. The patient understood all the risks, and was in agreement to proceed with surgery. DESCRIPTION OF PROCEDURE: After informed consent was obtained from the patient, the patient was given preoperative antibiotics, and was transferred to the operating room. After successful induction of general anesthesia, pneumatic compression devices were placed on both lower extremities. An upper endoscopy was performed next. The oropharynx and esophagus appeared to be within normal limits. There was no diaphragmatic hernia present consistent with the findings of the preoperative upper GI. The stomach was entered. Then after all fluid and air were suctioned and the stomach was fully decompressed, the scope was withdrawn and secured in the mid esophagus. The patient was then prepped and draped in the usual sterile manner, and abdominal access was established at the right upper quadrant with the Italo technique. A 12 mm blunt port was inserted, and the abdomen was insufflated with CO2 to a pressure of 15 mmHg. Under direct visualization, additional ports were placed, specifically two 5 mm Versi-step ports to the left upper quadrant, and a 5 mm Versi-Step port to the right upper quadrant. 1% lidocaine plain was used to infiltrate all port sites as well as all fascia defects. There were adhesions in the abdomen from previous laparoscopic cholecystectomy involving the omentum and the anterior abdominal wall. Those were lysed completely with the ultrasonic device. Following that, the patient was placed in a steep reverse Trendelenburg position. An additional 5 mm port was placed to the right flank for the Mediflex retractor that was used to retract the left lobe of the liver. The gastro-esophageal fat pad was opened with the ultrasonic device (Thunderbeat, Olympus) and the anterior esophagus and hiatus were exposed. The angle of His was opened with the ultrasonic device the fundus of the stomach from any diaphragmatic and splenic attachments. I then opened the gastrocolic ligament between the transverse colon and the greater curvature of the stomach with the ultrasonic device to enter the lesser sac and facilitate the ligation of the short gastric vessels. I started at a mid-point along the greater curvature and using the Thunderbeat, all short gastric vessels were divided all the way to the angle of His until the left candida was completely dissected at its entirety. I then divided the gastro-colic ligament distally to a distance of about 3-4 cm proximal to the pylorus.? The stomach was then divided transversely with two Endo SARI-45 purple and three SARI-60 articulating purple loads using the SIGNIA stapler and loads. Every effort was made that the gastric sleeve had a tubular shape and an even caliber throughout. Once the sleeve resection was completed, the staple line of the gastric sleeve was reinforced with Hemoclips. The resected stomach was retrieved without difficulty from the Italo port. A gastropexy was then performed in order to prevent postoperative GERD and partial gastric volvulus. Several interrupted 2.0 Surgidac sutures were placed between the sleeve's staple line and the previously divided greater omentum and gastro-colic ligament using the Endo-Stitch device. ?An upper endoscopy was performed. There was no narrowing at the GE junction. The scope was easily advanced all the way to the pylorus which was clearly visualized. There was no narrowing anywhere and the sleeve's caliber was even throughout. The sleeve's staple line was inspected and there was no evidence of ischemia, bleeding or dehiscence. At that point the gastroscope was withdrawn from the patient?s mouth while we were decompressing the bowel and the stomach from any remaining air. I looked into the lesser sac to see how the sleeve was situating and it was situating well. There was no bleeding from the staple line, spleen, or short gastric vessels. The Mediflex retractor was removed, and the undersurface of the liver was inspected and there was no bleeding. The patient was placed in supine position. I closed the fascial defect of the 12 mm port site with a figure of eight #1 Polysorb suture. Then 30cc Ropivacaine plain with 10 mg of Dexamethasone were used to infiltrate the fascial closure as well as all skin incisions. A total of 7ml Zynrelef was applied in the Moore wound. At this point, the abdomen was deflated, all ports were removed under direct vision, and no bleeding was noted from any of the port sites. The skin incisions were irrigated with saline and were closed with 4-0 absorbable monofilament sutures. Steri-Strips and OpSites were used to cover all incisions. The patient was extubated and was transferred in stable condition to the recovery room for further care. I was present and performed all houser parts of the procedure. Mr Mcgarry was the first grade teacher. There were no residents to assist with this case. Alberto Keith MD, PhD, FACS Surgeon: Germán Keith MD Anesthesia: GETA, local and other (TAP and 7ml Zynrelef) Was an Sql Database Programmer used for this Procedure?: No Sql Database Programmer: Jae Mcgarry Estimated blood loss (mL): 10 Urine output (mL): 0 (No Vaughan to record output) Pathology: other (Stomach) Condition: stable Disposition: PACU
--- NOTE | 2023-07-04 07:39 | PM.PNGS ---
Subjective Subjective Date of Service: 07/05/23 Interval history: Feels well. Mild incisional pain. She is tolerating phase 1 bariatric diet Physical Exam Vital Signs: Vital Signs: Last Vital Signs Temp 97.7 F 07/04/23 06:26 Pulse 101 H 07/04/23 06:26 Resp 18 07/04/23 06:26 BP 130/86 07/04/23 06:26 Pulse Ox 97 07/04/23 06:26 O2 Del Method Room Air 07/04/23 06:26 BMI result Body Mass Index 34.6 GI: Inspection: Yes normal to inspection, Yes incision (clean, dry and intact) and Yes obesity Palpation (GI): Soft to palpation Extrem: Right lower extremity: normal to inspection (no calf tenderness) Left lower extremity: normal to inspection (no calf tenderness) Objective Data Active Medications Albuterol Sulfate (Albuterol Sulfate (0.083%) 2.5 Mg/3 Ml Vial.Neb) 2.5 mg INHALE ONCE PRN PRN Reason: Shortness of Breath/Wheezing Lactated Ringer's (Lr) 1,000 mls @ 100 mls/hr IVCONT .Q10H [facility] Last Admin: 07/04/23 06:44 Dose: 100 mls/hr Documented By: HUONG Lactated Ringer's (Lr) 1,000 mls @ 999 mls/hr IV .Q1H1M [facility] Stop: 07/04/23 08:15 Last Admin: 07/04/23 06:44 Dose: 999 mls/hr Documented By: HUONG Labs 07/05/23 05:31 07/05/23 05:31 Labs: Laboratory Results - last 24 hr 07/04/23 06:15 Urine Test NEGATIVE Procedures Date of Service Date of Service: 07/05/23 Progress Note: A&P Assessment and plan (1) Obesity: Status: Acute Assessment and Plan: s/p laparoscopic sleeve gastrectomy, lysis of adhesions and gastropexy Doing well Will check am labs and if OK the patient will be discharged home (2) BMI 37.0-37.9, adult: Status: Acute (3) Hypertension: Status: Acute (4) GERD (gastroesophageal reflux disease): Status: Acute (5) Depression: Status: Acute (6) Anxiety: Status: Acute (7) Asthma: Status: Acute (8) DJD (degenerative joint disease): Status: Acute (9) Post traumatic stress disorder (PTSD): Status: Acute (10) Steatosis, liver: Status: Acute (11) Liver fibrosis: Status: Acute (12) Intra-abdominal adhesions: Status: Acute Time Spent With Patient Time: Total time managing care of this patient today ____ minutes. Quality Stroke Does the patient have a stroke diagnosis?: No VTE Prior VTE?: No VTE Risk Level:: Surgical - moderate VTE Device Contraindication: N/A - Device Ordered VTE Drug Contraindication: Treatment Not Indicated
--- NOTE | 2023-07-04 09:54 | P.DS_ITS ---
DS: Providers Provider Date of Service: 07/05/23 Date of admission: 07/04/23 06:07 Primary care physician: Rodri Maldonado DO DS: Diagnosis Discharge Diagnosis (1) Obesity: Status: Acute (2) BMI 37.0-37.9, adult: Status: Acute (3) Hypertension: Status: Acute (4) GERD (gastroesophageal reflux disease): Status: Acute (5) Depression: Status: Acute (6) Anxiety: Status: Acute (7) Asthma: Status: Acute (8) DJD (degenerative joint disease): Status: Acute (9) Post traumatic stress disorder (PTSD): Status: Acute (10) Steatosis, liver: Status: Acute (11) Liver fibrosis: Status: Acute (12) Intra-abdominal adhesions: Status: Acute DS: Summary Hospital Course Hospital Course: ADMITTING DIAGNOSIS: obesity, PTSD, anxiety, Depression, HTN ? DISCHARGE DIAGNOSIS: same, s/p laparoscopic sleeve gastrectomy ? PAST SURGICAL HISTORY: CCY, toe surgery ? PROCEDURE: upper endoscopy, laparoscopic sleeve gastrectomy ? DISCHARGE SUMMARY: ? History of Present Illness: ? The patient is a?47 year-old woman with a BMI of?44.3 kg/m2 and associated co- morbidities as described above. The patient had extensive work-up,lost?49.6 lbs preoperatively and was electively scheduled for laparoscopic, possible open sleeve gastrectomy and gastropexy. Risks and complications of the surgery were discussed with the patient in advance, particularly the possibility of , pulmonary embolism, anastomotic leak, bleeding, bowel injury, GERD, cardiac, renal or pulmonary complications. The patient understood all the risks and was in agreement with the surgical plan. ? Hospital Course: ? The patient underwent an uneventful laparoscopic sleeve gastrectomy with gastropexy on the day of admission. Postoperatively, the patient was transferred to the surgical floor. The patient received IV Acetaminophen and IV dilaudid for pain control. Patient was started on bariatric phase 1 diet POD #0. On postoperative day one, the patient was feeling well without nausea, vomiting, fevers, or tachycardia. The patient had some mild incisional pain and the abdomen was soft. ? On the morning of postoperative day one, the patient was continued on 1 ounce of water or ice every half hour. During the day, the patient did fairly well, having some incisional pain, but able to ambulate adequately and to tolerate liquids well. ? Since the patient is doing well, we decided that the patient was ready to be discharged. The patient was given instructions to follow-up with me next week and to call my office for any fever over 101, persistent abdominal pain, nausea, vomiting, GERD, symptoms of DVT such as calf tenderness, or leg swelling, or pulmonary embolism such as chest pain or shortness of breath. The patient was also instructed to drink 40-60 ounces of liquids per day using the 1-ounce cups. The patient had been given prescriptions for Tylenol for pain, Zofran prn for nausea, and pantoprazole and carafate previously. The patient was encouraged to ambulate and use the incentive spirometer. The patient was allowed to shower, but no baths, and encouraged to stay active at home. All of these instructions were given to the patient personally. All questions were answered and the patient understood all instructions, the instructions were also given to the patient in print. Time Spent with Patient Time attestation: Total time managing care of this patient today ____ minutes. Discharge coordination time: Less than 30 minutes Quality: Safe Use of Opioids Does Pt have an Active Cancer Diagnosis on the Problem List?: No Quality: Stroke Does the patient have a stroke diagnosis?: No Physical Exam Vital Signs: Vital Signs: Last Vital Signs Temp 97.7 F 07/04/23 06:26 Pulse 101 H 07/04/23 06:26 Resp 18 07/04/23 06:26 BP 130/86 07/04/23 06:26 Pulse Ox 97 07/04/23 06:26 O2 Del Method Room Air 07/04/23 06:26 BMI result Body Mass Index 34.6 DS: Data Data Completed and Pending Pending studies at discharge: Pending at discharge 07/04/23 09:01 Surgical [PTH] Routine Labs on day of discharge: Laboratory Results - last 24 hr 07/04/23 06:15 Urine Test NEGATIVE Discharge Plan Discharge Anticipated Discharge Date/Time: 07/05/23 10:56 Patient Disposition: Home, Self-Care Discharge Diagnosis: s/p llaparoscopic sleeve gastrectomy Referrals: Rodri Maldonado DO [Primary Care Provider] - 1 Week Discharge Medications: Continued ipratropium-albuterol 0.5 mg-3 mg(2.5 mg base)/3 mL solution for nebulization 3 ml inhalation QID PRN (Reason: Shortness Of Breath Or Wheezing) fluticasone propionate [Allergy Relief (fluticasone)] 50 mcg/actuation s pray,suspension 1 spray intranasal DAILY Rx Instructions: administer into each nostril montelukast 10 mg tablet 10 mg PO BEDTIME Combivent Respimat 20-100 mcg/actuation mist 1 puff inhalation Q6H PRN (Reason: Shortness Of Breath) fluticasone furoate-vilanterol [Breo Ellipta] 100-25 mcg/dose blister with device 1 inh inhalation DAILY duloxetine 30 mg capsule,delayed release(DR/EC) 90 mg PO DAILY lorazepam 1 mg tablet 1 mg PO BEDTIME Held losartan 50 mg tablet 50 mg PO DAILY Hold Instructions: Resume on 07/06/23. Check your blood pressure every evening and send it to Dr. Keith. Do not take the medication before you hear from Dr. Keith. Do not take the medication if your blood pressure is below 120/70 mmHg. Discontinued mecobalamin (vitamin B12) 1,000 mcg tablet,disintegrating 1,000 mcg sublingual DAILY Qty: 30 0RF cholecalciferol (vitamin D3) 125 mcg (5,000 unit) capsule 125 mcg PO DAILY Qty: 30 2RF gabapentin 300 mg capsule 300 mg PO BEDTIME loratadine [Allergy Relief (loratadine)] 10 mg tablet 10 mg PO DAILY Discharge Orders: Discharge Order (Routine); Ordered 07/05/23 Ordered By: Germán Keith Activity on Discharge: No heavy lifting Stand Alone Forms: Patient Portal Discharge page Care Plan Goals: weight loss Health Concerns: obesity Plan of Treatment: No tub baths, sex or returning to work until discussed at first post op appointment. No exercise, alcohol, tobacco or illegal drug use. Continue to use incentive spirometer hourly while awake. Walk in home for 5- 10 minutes every 2 hours during the first week. Follow all instructions in the bariatric handbook and call with any questions.Discharge Instructions 1. Please call your doctor or come back to the emergency room should any new symptoms arise. 2. You will receive a courtesy call from [facility] 24-48 hours after discharge. 3. Activity: abstain from alcohol, practice limited stair climbing, no bending, no driving, no exercise, no illicit substances, no lifting, no sex, no tub bath, no work. 4. Diet: continue as discussed with Dr. Keith. 5. Dressing Change/Wound Care: Your incision is covered by clear bandages and guaze underneath. If the area is tender, you may apply an ice pack for short intervals (no more than 20 minutes on, followed by at least 20 minutes off). Do not apply heat. Do not use creams, lotions, or topical antibiotics unless instructed to do so by your surgeon. These can cause infection or allergic reaction. 6. Call your doctor if: - Your temperature exceeds 101.5 F - You experience excessive pain or swelling - You have an unexpected reaction to medication - You have excessive bleeding - You experience continued vomiting/nausea - Your incision begins to separate - Your incision shows signs of infection such as increased redness, swelling, excessive pain, heat, or drainage (light blood or clear fluid is normal) 7. General instructions: No lifting greater than 5 lbs for 1 week and not more than 20lbs the next 3?weeks. No driving until seen at the office in 5-7 days after surgery. If you do not move your bowels in the next 2 days, please tell?Dr. Keith. Please walk around your home every hour or two to prevent blood clots from forming in your legs. You do not need to wake from sleeping to walk. Please sleep in a bed or couch to prevent kinking at the hips and knees. Please take your incentive spirometer (your lung pilot plant technician) home with you and use it for the next few days to prevent pneumonia. You may shower, no hot tubs, baths or swimming pools.?Please follow the post op diet instructions you are?given by Dr Americo talavera? and text me daily at 5-6pm for an update.?If you have any issues or concerns or questions please communicate this to him via text.? The Celebrate shakes have all of the bariatric vitamins you need if you consume these shakes. If you are drinking other protein shakes, you will need to purchase the Celebrate multivitamins and calcium that are available in the hospital gift shop on the first floor of the main hospital.??Do not take anything without first discussing with Dr Keith. Please make sure you are consuming at least 40 ounces of fluids per day starting the?day AFTER your discharge from the hospital. Always drink 1-2 ml per minute using the 5ml?syringe. If you drink faster you may experience?bloating,?gas pain, burping, nausea or heartburn. In that case please slow down your pace and use the syringe to?understand better the?proper?pace and volume of drinking. Do not hesitate to contact the office with any questions at . The patient's medical history has been reviewed and they are considered low risk for post op DVT and therefore DVT prophylaxis is not considered necessary. Travel after surgery was reviewed. The patient has not disclosed any travel plans during the first 30 days after surgery and they have been advised that within the first 30 days after surgery any bus, plane, train or car travel over 2 hours in duration is contraindicated due to the possibility of developing blood clots from immobility. Any travel, needs to include periods of ambulation of 10 minutes in duration every 2 hours.? The patient was instructed to discuss any plans for travel during this period with their bariatric surgeon. Assessment: stable s/p laparoscopic sleeve gastrectomy
[2023-07-04 10:53] LABS: Hematocrit 38.4 % (37.0-47.0); Hemoglobin 13.1 g/dl (12.0-16.0)
--- NOTE | 2023-07-04 10:53 | PHA.MEDREC ---
Pharmacy Consult ? Medication Reconciliation Pharmacy has completed the medication reconciliation. checked med rec done by nursing
[2023-07-04 11:02] LABS: Anion Gap 17 (12-20); Blood Urea Nitrogen 11 mg/dL (9-16); Calcium 9.7 mg/dL (8.4-10.2); Carbon Dioxide 21 mmol/L (22-29); Chloride 104 mmol/L (96-108); Creatinine Clr Calc Pharmacy 105.8; Estimated Glomerular Filt Rate > 60; Glucose Random 123 mg/dL (60-115); Potassium 3.9 mmol/L (3.3-5.1); Sodium 138 mmol/L (135-145)
[2023-07-04] MEDS: Acetaminophen 1,000 MG/100 ML PIGGYBACK 16.7 MG IV ×2 (11:34→17:38)
[2023-07-04] MEDS: ceFAZolin Sodium/Dextrose,Iso 2 GM/50 ML PIGGYBACK IV (14:05)
[2023-07-04] MEDS: Montelukast Sodium 10 MG TABLET PO (20:13)
[2023-07-04] MEDS: LORazepam 1 MG TABLET PO (20:13)
[2023-07-04] MEDS: Famotidine/PF 20 MG/2 ML VIAL IVPUSH (20:13)
[2023-07-05] MEDS: Acetaminophen 1,000 MG/100 ML PIGGYBACK 16.7 MG IV ×2 (00:24→06:31)
[2023-07-05 00:40] VITALS: BP 162/98; PULSE 78; RESP 18; TEMP 36.6; O2SAT 97
[2023-07-05 03:35] VITALS: BP 143/77; PULSE 78; RESP 18; TEMP 36.6; O2SAT 97
[2023-07-05] MEDS: Lactated Ringers 1,000 ML 100 ML IVCONT (05:27)
[2023-07-05 06:05] LABS: MANUAL DIFF FLAG NO
[2023-07-05 06:21] LABS: Anion Gap 16 (12-20); Blood Urea Nitrogen 7 mg/dL (9-16); Carbon Dioxide 20 mmol/L (22-29); Chloride 107 mmol/L (96-108); Creatinine Clr Calc Pharmacy 132.3; Estimated Glomerular Filt Rate > 60; Glucose Random 105 mg/dL (60-115); Sodium 139 mmol/L (135-145)
[2023-07-05 06:24] LABS: Basophils Percent Auto 0.2 % (0-2); Eosinophils Percent Auto 0.1 % (0-4); Hematocrit 37.8 % (37.0-47.0); Hemoglobin 13.4 g/dl (12.0-16.0); Imm Gran Abs Auto 0.04 X10*3/uL (0.00-0.03); Imm Gran Pct Auto 0.4 % (0.0-0.4); Lymphocytes Absolute Auto 1.3 X10*3/uL (1.2-4.9); Lymphocytes Percent Auto 14.2 % (20-40); Mean Corpuscular HGB Conc 35.4 g/dl (31.0-35.0); Mean Corpuscular Hemoglobin 31.2 pg (27.0-33.0); Mean Corpuscular Volume 87.9 fL (80.0-98.0); Mean Platelet Volume 9.9 fL (9.4-12.3); Monocytes Absolute Auto 0.8 X10*3/uL (0.1-1.2); Monocytes Percent Auto 8.7 % (2-11); Neutrophils Percent Auto 76.4 % (45-73); Platelet Count 206 X10*3/uL (160-400); White Blood Count 9.2 X10*3/uL (4.8-10.8)
[2023-07-05 07:59] VITALS: BP 149/77; PULSE 87; RESP 18; TEMP 36.1; O2SAT 98
[2023-07-05] MEDS: Fluticasone/Vilanterol 100/25 BLST.W.DEV 1 PUFF INHALE (08:10)
[2023-07-05] MEDS: Famotidine/PF 20 MG/2 ML VIAL IVPUSH (08:37)
[2023-07-05] MEDS: DULoxetine HCl 30 MG CAPSULE.DR 90 MG PO (08:37)
[2023-07-05] MEDS: Fluticasone Propionate Nasal 16 GM SPRAY 1 SPRAY NOSTRIL-B (08:50)
--- NOTE | 2023-07-05 09:44 | MHC.CM.PN ---
Patient lives with family. She is independent with all functional mobility. Patient is discharged to home today self care. She has arranged for a family member to provide a ride home.
--- NOTE | 2023-07-05 14:25 | HO.POSTANES ---
Post Anesthesia Evaluation Post Anesthesia Evaluation Date of Service: 07/05/23 Vital Signs: Vital Signs Temp Pulse Resp BP Pulse Ox O2 Del Method 07/05/23 07:59 96.9 F 87 18 149/77 H 98 Room Air 07/05/23 03:35 98 F 78 18 143/77 H 97 Room Air Anesthesia: General Endotracheal-GETA Mental Status: Awake Pain Control: Satisfactory Nausea/Vomiting: None Hydration: Adequate Anesthesia-Related Issues: No Anes. Related Issues
== END 2023-07-05 10:36 | disposition home or self-care (01) | DRG 403 ==
LOC: HO.SSSA 06:10 → HO.S3 10:39
PROVIDERS: Nurse Practitioner; Physician Assistant Surgical; Admitting Provider Surgery; PCP Student in an Organized Health Care Education/Training Program; Visit Provider Surgery
PROC: 0DB64Z3 Excision of Stomach, Percutaneous Endoscopic Approach, Vertical (ICD-10-PCS; CPT 43845; principal; 2023-07-04 07:30)
DX: E66.01 Morbid (severe) obesity due to excess calories (principal); K74.00 Hepatic fibrosis, unspecified; F32.A Depression, unspecified; K76.0 Fatty (change of) liver, not elsewhere classified; K21.9 Gastro-esophageal reflux disease without esophagitis; M19.90 Unspecified osteoarthritis, unspecified site; J45.909 Unspecified asthma, uncomplicated; F41.9 Anxiety disorder, unspecified; Z68.37 Body mass index [BMI] 37.0-37.9, adult; Z87.891 Personal history of nicotine dependence; Z79.51 Long term (current) use of inhaled steroids; Z79.899 Other long term (current) drug therapy
CPT/HCPCS: 43775; 43659; 36415; 80048; 81025; 85014; 85018; 85025; 86850; 86900; 86901; 88304; 88305; 88307; 88342; A4649; C9088; C9145; J0131; J0690; J1100; J1170; J2250; J2371; J2405; J2795; J3010

== ENCOUNTER → 2023-07-04 06:07 | Outpatient (BNV) | payer OTHER, SELFPAY | PROVIDERS: Admitting Provider Surgery; PCP Student in an Organized Health Care Education/Training Program; Visit Provider Surgery | DX: E66.9 Obesity, unspecified (principal); Z68.37 Body mass index [BMI] 37.0-37.9, adult; K66.0 Peritoneal adhesions (postprocedural) (postinfection) | CPT/HCPCS: 43659; 43775 ==

== ENCOUNTER 2023-07-09 09:56 | Outpatient (AMB) | payer OTHER, SELFPAY ==
--- NOTE | 2023-07-09 10:46 | MHC.OFFVISWM ---
Intake VS Expanded 07/09/23 11:08 BP 121/76 Blood Pressure Location Rt brachial Blood Pressure Position Sitting Pulse 100 Pulse Source Pulse Oximeter Temp 97.7 F Temperature Source Temporal Artery Scan Pulse Oximetry 98 Oxygen Delivery Method Room Air Height 5 ft 1.5 in Weight 186 lb 6.4 oz BMI 34.6 Body Fat % 38.9 Body Fat Mass 72.6 Fat Free Mass 113.8 Visceral Fat Rating 10.0 Body Water % 43.6 Body Water Mass 81.2 Muscle Mass/Score 108.0 Basal Metabolic Rate/Score 1,564 Intake Visit Reasons: (OV) 5 Days PO LSG 07/04/23 Allergies No Known Allergies Allergy (Verified 07/09/23 10:47) HPI HPI Comments History of Present Illness Details 47-year-old female, postop day 5., status post sleeve gastrectomy on 07/04/2023. Reports tolerating 3 celebrate for 1 shakes with 1 screw beach an approximately 30-40 oz of fluids throughout the day. She has had a bowel movement. No significant pain. Reports started taking her losartan. She has been in communication with Dr. Keith about her blood pressure and she was instructed to restart her medication. [facility] Medical History (Updated 07/04/23 @ 09:50 by Germán Keith MD) Arthritis Asthma DJD (degenerative joint disease) Anxiety Depression GERD (gastroesophageal reflux disease) Hypertension Morbid obesity Surgical History S/P laparoscopic sleeve gastrectomy Hx of cholecystectomy Hx of wisdom tooth extraction Hx of toe surgery Family History Mother Hypertension Osteoarthritis Father Diabetes Hypertension Son Asthma Son No problems noted. Social History Household Members: None Housing: House Do you presently have visiting nurse or other home services: No Alcohol intake: current Alcohol intake frequency: holidays/special occasions only Patient Tobacco Use Status: Former Tobacco user Quit Date: 7YRS AGO service: No Physical Exam Vital Signs: Last Vital Signs Temp 97.7 F 07/09/23 11:08 Pulse 100 07/09/23 11:08 BP 121/76 07/09/23 11:08 Pulse Ox 98 07/09/23 11:08 Oxygen Delivery Method Room Air 07/09/23 11:08 BMI result Body Mass Index 34.6 GI Inspection: Yes incision (c/d/i, mild bruising) Assessment & Plan Assessment & Plan (1) S/P laparoscopic sleeve gastrectomy: Code(s): Z98.84 - Bariatric surgery status Plan: POD 5 s/p LSG on 07/04/[address] Keith Weight loss prior to surgery was 49.6 pounds or 20.7% TBWL. Original weight on 03/04/2023 was 238.6 pounds and op weight was 189 pounds. Be sure to text Dr Keith exactly 1 week after surgery your weight from your home scale so he can adjust your meal plan. Continue meal plan until f/u w Svitlana in 3 weeks May shower, no submersion in bath for another week Continue abdominal binder with activity and exercise for the next 2 weeks. Exercise prior to surgery was Treadmill, may resume No abdominal exercises for 6 weeks post operatively Will be emailed link to post op video for review Reminded of the pace of drinking, 2 mL per minute, 1 oz/15 min. Will continue to communicate with Dr Driscoll about her BP Coding Level of Care Code Global (55395) Diagnoses S/P laparoscopic sleeve gastrectomy Z98.84
[2023-07-09 11:08] VITALS: BP 121/76; PULSE 100; TEMP 36.5; O2SAT 98; BMI 34.6
== END 2023-07-09 11:55 | disposition home or self-care (01) ==
PROVIDERS: PCP Student in an Organized Health Care Education/Training Program; Visit Provider Physician Assistant Surgical
DX: E66.9 Obesity, unspecified (principal); Z68.34 Body mass index [BMI] 34.0-34.9, adult; Z90.3 Acquired absence of stomach [part of]; Z98.84 Bariatric surgery status
CPT/HCPCS: 99024

== ENCOUNTER → 2023-07-09 09:56 | Outpatient (BNVA) | payer OTHER, SELFPAY | PROVIDERS: PCP Student in an Organized Health Care Education/Training Program; Visit Provider Physician Assistant Surgical ==

== ENCOUNTER 2023-07-30 12:22 | Outpatient (AMB) | payer OTHER, SELFPAY ==
--- NOTE | 2023-07-30 12:25 | A.OFFVIS_ITS ---
Intake VS Expanded 07/30/23 12:34 BP 123/68 Blood Pressure Location Rt brachial Blood Pressure Position Sitting Pulse 86 Pulse Source Pulse Oximeter Temp 96.8 F Temperature Source Tympanic Pulse Oximetry 96 Oxygen Delivery Method Room Air Height 5 ft 1.5 in Weight 177 lb 3.2 oz BMI 32.9 Body Fat % 35.1 Body Fat Mass 62.2 Fat Free Mass 114.8 Visceral Fat Rating 8.0 Body Water % 46.2 Body Water Mass 81.8 Muscle Mass/Score 109.2 Basal Metabolic Rate/Score 1,560 Intake Visit Reasons: (OV) PO LSG 07/04/23 Allergies No Known Allergies Allergy (Verified 07/30/23 12:30) Medication List - Last Reconciled 07/30/23 by JENNIFER Lambert duloxetine 90 mg PO DAILY fluticasone furoate-vilanterol 100-25 mcg/dose (Breo Ellipta) 1 inh inhalation DAILY fluticasone propionate 50 mcg/actuation (Allergy Relief (fluticasone)) 1 spray intranasal DAILY ipratropium-albuterol 0.5 mg-3 mg(2.5 mg base)/3 mL 3 mL inhalation QID PRN ipratropium-albuterol 20-100 mcg/actuation (Combivent Respimat) 1 puff inhalation Q6H PRN lorazepam 1 mg PO BEDTIME montelukast 10 mg PO BEDTIME pantoprazole 40 mg PO DAILY sucralfate mL PO HPI HPI Comments History of Present Illness Details Pt is 4 weeks s/p LSG by Dr. Driscoll, 07/04/2023. Weight loss of 10.8lbs since last office visit 3 weeks ago. No vomiting, no complaints of pain. Occasional nausea during exercise, has not used Zofran much. Current meal plan: 2 8oz Celebrate shakes, 1 scoop each in unsweetened almond milk at 8-10am, 11am- 1pm 1 8oz shake, 2 scoops in unsweetened vida ond milk, 2-4pm protein bar (ZP) in evening, 5-8pm Exercise: 400 lexis 5x week, treadmill PFSH Medical History (Updated 07/13/23 @ 00:03 by Pete Bronson) BMI 37.0-37.9, adult BMI 38.0-38.9,adult BMI 39.0-39.9,adult Arthritis Asthma DJD (degenerative joint disease) Anxiety Depression GERD (gastroesophageal reflux disease) Hypertension Morbid obesity Surgical History S/P laparoscopic sleeve gastrectomy Hx of cholecystectomy Hx of wisdom tooth extraction Hx of toe surgery Family History Mother Hypertension Osteoarthritis Father Diabetes Hypertension Son Asthma Son No problems noted. Social History Household Members: None Housing: House Do you presently have visiting nurse or other home services: No Alcohol intake: current Alcohol intake frequency: holidays/special occasions only Patient Tobacco Use Status: Former Tobacco user Quit Date: 7YRS AGO service: No Physical Exam Const General: cooperative, comfortable and no acute distress Orientation/consciousness: patient oriented x3 GI Other: soft, nontender, nondistended, incisions healing well, no hernia, no masses. Middle right sided incision with exposed suture tails- cut today Neuro General: patient oriented x3 Assessment & Plan Assessment & Plan (1) S/P laparoscopic sleeve gastrectomy: Code(s): Z98.84 - Bariatric surgery status (2) Obesity: Code(s): E66.9 - Obesity, unspecified Plan Pt will text Dr Driscoll on with weekly weight and receive further meal plan direction at that time. Continue current exercise regimen of 400cal, 5x/week. Continue pantoprazole and carafate. We reviewed the pace of drinking and sipping shakes slowly to help avoid nausea during exercise as it sounds like pt may be drinking at a slightly faster pace when she is busy at work. Reviewed no heavy lifting until 6 weeks postop. RTC 2 weeks. Patient is and is not considered stable at this time. I spent a total of 30 minutes reviewing/updating records, examining the patient and counseling the patient on weight management as detailed above. Coding Level of Care Code Est Pt Level 4 (85572) Diagnoses S/P laparoscopic sleeve gastrectomy Z98.84 Obesity E66.9
[2023-07-30 12:34] VITALS: BP 123/68; PULSE 86; TEMP 36; O2SAT 96; BMI 32.9
== END 2023-07-30 12:52 | disposition home or self-care (01) ==
PROVIDERS: PCP Student in an Organized Health Care Education/Training Program; Visit Provider Physician Assistant Surgical
DX: Z98.84 Bariatric surgery status (principal); E66.9 Obesity, unspecified
CPT/HCPCS: 99024

== ENCOUNTER → 2023-07-30 12:22 | Outpatient (BNVA) | payer OTHER, SELFPAY | PROVIDERS: PCP Student in an Organized Health Care Education/Training Program; Visit Provider Physician Assistant Surgical ==

== ENCOUNTER 2023-08-20 15:53 | Outpatient (AMB) | payer OTHER, SELFPAY ==
--- NOTE | 2023-08-20 15:58 | MHC.OFFVISWM ---
Intake VS Expanded 08/20/23 16:05 BP 125/77 Blood Pressure Location Rt brachial Blood Pressure Position Sitting Pulse 85 Pulse Source Pulse Oximeter Temp 97.6 F Temperature Source Temporal Artery Scan Pulse Oximetry 98 Oxygen Delivery Method Room Air Height 5 ft 1.5 in Weight 170 lb 6.4 oz BMI 31.7 Body Fat % 33.4 Body Fat Mass 56.8 Fat Free Mass 113.4 Visceral Fat Rating 8.0 Body Water % 47.4 Body Water Mass 80.6 Muscle Mass/Score 107.6 Basal Metabolic Rate/Score 1,532 Intake Visit Reasons: (OV) PO LSG 07/04/23 Distribution Technician Required: No Allergies No Known Allergies Allergy (Verified 08/20/23 16:01) Medication List - Last Reconciled 08/20/23 by JENNIFER Ambriz duloxetine 90 mg PO DAILY fluticasone furoate-vilanterol 100-25 mcg/dose (Breo Ellipta) 1 inh inhalation DAILY fluticasone propionate 50 mcg/actuation (Allergy Relief (fluticasone)) 1 spray intranasal DAILY ipratropium-albuterol 0.5 mg-3 mg(2.5 mg base)/3 mL 3 mL inhalation QID PRN ipratropium-albuterol 20-100 mcg/actuation (Combivent Respimat) 1 puff inhalation Q6H PRN lorazepam 1 mg PO BEDTIME montelukast 10 mg PO BEDTIME pantoprazole 40 mg PO DAILY sucralfate mL PO HPI HPI Comments History of Present Illness Details This?a?47?yo female who is s/p LSG without hiatal hernia repair on?07/04/2023. Presents for 6 week post op visit. Weight today is 170.4 pounds, with a BMI of 31.6. There has been a 68.2 pound weight loss,(initial weight 238.6 pounds) since starting the program on 03/04/2023 reflecting a 28.5 % total body weight loss and a weight loss of 18.6 pounds since surgery (operative weight 189 pounds) reflecting a 9.8 % TBWL since surgery. No complaints of nausea, emesis, abdominal pain or reflux. Reports infrequent but normal bowel movements every 2-3 days . Started celebrate MVI last week 1 daily Present meal plan includes: celebrate 4 in 1, 1/2 scoop in 8 oz almond milk 8-10 ZP bar 11-1 shake 1/2 scoop, 2-4 ZP bar 5-7 ZP bar 8-10 Drinking 24 oz water ? Exercise routine includes: treadmill 7-14 incline 2.9 speed, 5 days per week, 500 lexis [facility] Medical History BMI 37.0-37.9, adult BMI 38.0-38.9,adult BMI 39.0-39.9,adult Arthritis Asthma DJD (degenerative joint disease) Anxiety Depression GERD (gastroesophageal reflux disease) Hypertension Morbid obesity Surgical History S/P laparoscopic sleeve gastrectomy Hx of cholecystectomy Hx of wisdom tooth extraction Hx of toe surgery Family History Mother Hypertension Osteoarthritis Father Diabetes Hypertension Son Asthma Son No problems noted. Social History Household Members: None Housing: House Do you presently have visiting nurse or other home services: No Alcohol intake: current Alcohol intake frequency: holidays/special occasions only Patient Tobacco Use Status: Former Tobacco user Quit Date: 7YRS AGO service: No Review of Systems Const All systems reviewed & are unremarkable except as noted in HPI and below Physical Exam Vital Signs: Last Vital Signs Temp 97.6 F 08/20/23 16:05 Pulse 85 08/20/23 16:05 BP 125/77 08/20/23 16:05 Pulse Ox 98 08/20/23 16:05 Oxygen Delivery Method Room Air 08/20/23 16:05 BMI result Body Mass Index 31.7 Const General: healthy appearing and no acute distress Resp Effort & Inspection: normal respiratory effort Auscultation: clear to auscultation bilaterally Cardio Rate: regular rate Rhythm: regular rhythm GI Auscultation: normal bowel sounds Extrem General: Yes normal to inspection Assessment & Plan Assessment & Plan (1) Obesity: Code(s): E66.9 - Obesity, unspecified Plan: Patient is making good progress. She is satisfied with current meal plan. She will continue with the current meal plan. She has been encouraged to maintain discipline in structure and to continue going to the gym. She will return to the office in 3-4 weeks. She will text with any issues. She has been encouraged to increase her water intake to 40-50 oz per day. Coding Level of Care Code Global (93138) Diagnoses Obesity E66.9
[2023-08-20 16:05] VITALS: BP 125/77; PULSE 85; TEMP 36.4; O2SAT 98; BMI 31.7
== END 2023-08-20 16:36 | disposition home or self-care (01) ==
PROVIDERS: PCP Student in an Organized Health Care Education/Training Program; Visit Provider Physician Assistant Surgical
DX: E66.9 Obesity, unspecified (principal)
CPT/HCPCS: 99024

== ENCOUNTER → 2023-08-20 15:53 | Outpatient (BNVA) | payer OTHER, SELFPAY | PROVIDERS: PCP Student in an Organized Health Care Education/Training Program; Visit Provider Physician Assistant Surgical ==

== ENCOUNTER 2023-09-27 15:54 | Outpatient (AMB) | payer OTHER, SELFPAY ==
--- NOTE | 2023-09-27 15:36 | A.OFFVIS_ITS ---
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: No Allergies No Known Allergies Allergy (Verified 08/20/23 16:01) Medication List - Last Reconciled 09/27/23 by JENNIFER Ambriz duloxetine 90 mg PO DAILY fluticasone furoate-vilanterol 100-25 mcg/dose (Breo Ellipta) 1 inh inhalation DAILY fluticasone propionate 50 mcg/actuation (Allergy Relief (fluticasone)) 1 spray intranasal DAILY ipratropium-albuterol 0.5 mg-3 mg(2.5 mg base)/3 mL 3 mL inhalation QID PRN ipratropium-albuterol 20-100 mcg/actuation (Combivent Respimat) 1 puff inhalation Q6H PRN lorazepam 1 mg PO BEDTIME montelukast 10 mg PO BEDTIME HPI HPI Comments History of Present Illness Details This?a?47?yo female who is s/p LSG without hiatal hernia repair on?07/04/2023. Presents for 3 month post op visit. Weight today is 155 pounds, with a BMI of 28.8. There has been a 83.6 pound weight loss,(initial weight 238 .6 pounds) since starting the program on 03/04/2023 reflecting a 35 % total body weight loss and a weight loss of 34 pounds since surgery (operative weight 189 pounds) reflecting a 17.9 % TBWL since surgery. No complaints of nausea, emesis, abdominal pain or reflux. Reports infrequent but normal bowel movements every 2-3 days . Started celebrate MVI last week 1 daily Present meal plan includes: celebrate 4 in 1 1/2 scoop in 8 oz almond milk 8-10 am ZP bar 11-1 shake 1/2 scoop, 2-4 pm ZP bar 6-8 ZP bar 9-11 Drinking 24 oz water ? Exercise routine includes: treadmill 7-15 incline 3.2 speed, 5 days per week, 600 lexis [facility] Medical History BMI 37.0-37.9, adult BMI 38.0-38.9,adult BMI 39.0-39.9,adult Arthritis Asthma DJD (degenerative joint disease) Anxiety Depression GERD (gastroesophageal reflux disease) Hypertension Morbid obesity Surgical History S/P laparoscopic sleeve gastrectomy Hx of cholecystectomy Hx of wisdom tooth extraction Hx of toe surgery Family History Mother Hypertension Osteoarthritis Father Diabetes Hypertension Son Asthma Son No problems noted. Social History Household Members: None Housing: House Do you presently have visiting nurse or other home services: No Alcohol intake: current Alcohol intake frequency: holidays/special occasions only Patient Tobacco Use Status: Former Tobacco user Quit Date: 7YRS AGO service: No Assessment & Plan Assessment & Plan (1) Overweight (BMI 25.0-29.9): Code(s): E66.3 - Overweight Plan: Will trial orgain, 1 scoop per shake to see if this alleviates the diarrhea that she seems to get with the celebrate. Add celebrate protein water instead of 1 of the bars. Text me next week when she initiates this plan on Saturday when she can get the supplies. Continue current exercise plan. Increase fluids to 48 oz daily. Return to clinic 3-4 weeks. Telehealth Telehealth Location of provider rendering services: practice address Location of patient: address on file Patient Identification confirmed using: Name, : Yes Telehealth method: voice only Patient verbally consented to treatment: Yes Patient verbally consented to billing insurance company: Yes Patient informed of any privacy concerns related to visit: Yes Minutes spent on Phone/Video with Pt.: 18 Coding Level of Care Code Global (89665) Diagnoses Overweight (BMI 25.0-29.9) E66.3
[2023-09-27 15:38] VITALS: BMI 28.8
== END 2023-09-27 15:59 | disposition home or self-care (01) ==
LOC: HO.HBS 15:54
PROVIDERS: PCP Student in an Organized Health Care Education/Training Program; Visit Provider Physician Assistant Surgical
DX: E66.3 Overweight (principal)
CPT/HCPCS: 99024

== ENCOUNTER → 2023-09-27 15:54 | Outpatient (BNVA) | payer OTHER, SELFPAY | PROVIDERS: PCP Student in an Organized Health Care Education/Training Program; Visit Provider Physician Assistant Surgical ==

== ENCOUNTER 2023-10-18 15:36 | Outpatient (AMB) | payer OTHER, SELFPAY ==
[2023-10-18 08:16] VITALS: BMI 27.5
--- NOTE | 2023-10-18 08:16 | MHC.OFFVISWM ---
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 Allergies No Known Allergies Allergy (Verified 08/20/23 16:01) Medication List - Last Reconciled 10/18/23 by JENNIFER Ambriz duloxetine 90 mg PO DAILY fluticasone furoate-vilanterol 100-25 mcg/dose (Breo Ellipta) 1 inh inhalation DAILY fluticasone propionate 50 mcg/actuation (Allergy Relief (fluticasone)) 1 spray intranasal DAILY ipratropium-albuterol 0.5 mg-3 mg(2.5 mg base)/3 mL 3 mL inhalation QID PRN ipratropium-albuterol 20-100 mcg/actuation (Combivent Respimat) 1 puff inhalation Q6H PRN lorazepam 1 mg PO BEDTIME montelukast 10 mg PO BEDTIME HPI HPI Comments History of Present Illness Details This?a?47?yo female who is s/p LSG without hiatal hernia repair on?07/04/2023. Presents for 3.5 month post op visit. Weight today is 148.2 pounds, with a BMI of 27.5. There has been a 90.4 pound weight loss,(initial weight 238.6 pounds) since starting the program on 03/04/2023 reflecting a 37.8 % total body weight loss and a weight loss of 40.8 pounds since surgery (operative weight 189 pounds) reflecting a 21.5 % TBWL since surgery. No complaints of nausea, emesis, abdominal pain or reflux. Reports infrequent but normal bowel movements every 2-3 days . Started celebrate MVI last week 1 daily Present meal plan includes: She was going to try orgain and she states she does not like it and has continued with the celebrate 4 in 1. No further abdominal discomfort. Overall, she is doing very well. She has inquired about reintroducing food. She is extremely excited about her progress. celebrate 4 in 1 1/2 scoop in 8 oz almond milk 8-10 am ZP bar 11-1 shake 1/2 scoop, 2-4 pm ZP bar 6-8 ZP bar 9-11 Drinking 64 oz water ? Exercise routine includes: treadmill 15 incline 3.2 speed, two 1/2 hr sessions 5-6 days per week, 750 lexis, [employer] [facility] Medical History BMI 37.0-37.9, adult BMI 38.0-38.9,adult BMI 39.0-39.9,adult Arthritis Asthma DJD (degenerative joint disease) Anxiety Depression GERD (gastroesophageal reflux disease) Hypertension Morbid obesity Surgical History S/P laparoscopic sleeve gastrectomy Hx of cholecystectomy Hx of wisdom tooth extraction Hx of toe surgery Family History Mother Hypertension Osteoarthritis Father Diabetes Hypertension Son Asthma Son No problems noted. Social History Household Members: None Housing: House Do you presently have visiting nurse or other home services: No Alcohol intake: current Alcohol intake frequency: holidays/special occasions only Patient Tobacco Use Status: Former Tobacco user Quit Date: 7YRS AGO service: No Review of Systems Const All systems reviewed & are unremarkable except as noted in HPI and below Assessment & Plan Assessment & Plan (1) Overweight (BMI 25.0-29.9): Code(s): E66.3 - Overweight Plan: Making excellent progress. She wishes to introduce food although keep her meal plan essentially the same. We will change it accordingly: 08:00 to 10:00 celebrate 4 in 1 shake with 1/2 scoop in 8 oz of almond milk 11:00 to 13:00 zone perfect bar 14:00 to 16:00 another shake 18:00 meal with 4 forks of protein and 4 forks of cooked vegetables, 20:00 22:00 zone perfect bar She will continue with her exercise pattern at the gym although I encouraged her to introduce weight training with the assistance of a puppy trainer at [employer] [facility] where she goes. Continue to send weight measurements weekly. Return to clinic 3 weeks. Telehealth Telehealth Location of provider rendering services: practice address Location of patient: address on file Patient Identification confirmed using: Name, : Yes Telehealth method: voice only Patient verbally consented to treatment: Yes Patient verbally consented to billing insurance company: Yes Patient informed of any privacy concerns related to visit: Yes Minutes spent on Phone/Video with Pt.: 15 Coding Level of Care Code Tele Est Pt Level 3 (34019) Diagnoses Overweight (BMI 25.0-29.9) E66.3 Time Spent (min) 25
== END 2023-10-18 16:06 | disposition home or self-care (01) ==
LOC: HO.HBS 15:36
PROVIDERS: PCP Student in an Organized Health Care Education/Training Program; Visit Provider Physician Assistant Surgical
DX: E66.3 Overweight (principal)
CPT/HCPCS: 99213

== ENCOUNTER → 2023-10-18 15:36 | Outpatient (BNVA) | payer OTHER, SELFPAY | PROVIDERS: PCP Student in an Organized Health Care Education/Training Program; Visit Provider Physician Assistant Surgical ==

== ENCOUNTER 2023-11-18 15:38 | Outpatient (AMB) | payer OTHER, SELFPAY ==
[2023-11-18 15:03] VITALS: BMI 26.2
--- NOTE | 2023-11-18 15:03 | MHC.OFFVISWM ---
Intake VS Expanded 11/18/23 15:03 Height 5 ft 1.5 in Weight 140 lb 12.8 oz BMI 26.2 Body Fat % 32.6 Body Fat Mass 45.9 Fat Free Mass 94.8 Visceral Fat Rating 10 Body Water % 46.2 Body Water Mass 65 Muscle Mass/Score 89.2 Basal Metabolic Rate/Score 1,288 Intake Visit Reasons: VIDEO PO LSG 07/04/23 Allergies No Known Allergies Allergy (Verified 08/20/23 16:01) HPI HPI Comments History of Present Illness Details This?a?47?yo female who is s/p LSG without hiatal hernia repair on?07/04/2023. Presents for 4.5 month post op visit. Weight today is 140.8 pounds, with a BMI of 26.2. There has been a 97.8 pound weight loss,(initial weight 238.6 pounds) since starting the program on 03/04/2023 reflecting a 40.9 % total body weight loss and a weight loss of 48.2 pounds since surgery (operative weight 189 pounds) reflecting a 25.5 % TBWL since surgery. No complaints of nausea, emesis, abdominal pain or reflux. Reports infrequent but normal bowel movements every 2-3 days . Started celebrate MVI last week 1 daily Present meal plan includes: She was going to try orgain and she states she does not like it and has continued with the celebrate 4 in 1. No further abdominal discomfort. Overall, she is doing very well. She is extremely excited about her progress. She loves the adjusted meal plan as listed below. 8-10 celebrate 4 in 1 shake with 1/2 scoop in 8 oz of almond milk 11-1 zone perfect bar 2-4 another shake 6pm meal with 4 forks of protein and 4 forks of cooked vegetables, 8-10 zone perfect bar Drinking 64 oz water ? Exercise routine includes: treadmill 15 incline 3.4 speed, two 1/2 hr sessions 5-6 days per week, 750 lexis, [employer] [facility] Medical History BMI 37.0-37.9, adult BMI 38.0-38.9,adult BMI 39.0-39.9,adult Arthritis Asthma DJD (degenerative joint disease) Anxiety Depression GERD (gastroesophageal reflux disease) Hypertension Morbid obesity Surgical History S/P laparoscopic sleeve gastrectomy Hx of cholecystectomy Hx of wisdom tooth extraction Hx of toe surgery Family History Mother Hypertension Osteoarthritis Father Diabetes Hypertension Son Asthma Son No problems noted. Social History Household Members: None Housing: House Do you presently have visiting nurse or other home services: No Alcohol intake: current Alcohol intake frequency: holidays/special occasions only Patient Tobacco Use Status: Former Tobacco user Quit Date: 7YRS AGO service: No Assessment & Plan Assessment & Plan (1) Overweight (BMI 25.0-29.9): Code(s): E66.3 - Overweight Plan: Making excellent progress and satisfied with her current meal plan. Continue both meal plan and exercise plan. Return to clinic for six-month follow-up appointment mid December. She will continue to text me her weights weekly. Telehealth Telehealth Location of provider rendering services: practice address Location of patient: address on file Patient Identification confirmed using: Name, : Yes Telehealth method: voice only Patient verbally consented to treatment: Yes Patient verbally consented to billing insurance company: Yes Patient informed of any privacy concerns related to visit: Yes Minutes spent on Phone/Video with Pt.: 10 Coding Level of Care Code Tele Est Pt Level 3 (02836) Diagnoses Overweight (BMI 25.0-29.9) E66.3 Time Spent (min) 15
== END 2023-11-18 15:43 | disposition home or self-care (01) ==
LOC: HO.HBS 15:38
PROVIDERS: PCP Student in an Organized Health Care Education/Training Program; Visit Provider Physician Assistant Surgical
DX: E66.3 Overweight (principal)
CPT/HCPCS: 99213

== ENCOUNTER → 2023-11-18 15:38 | Outpatient (BNVA) | payer OTHER, SELFPAY | PROVIDERS: PCP Student in an Organized Health Care Education/Training Program; Visit Provider Physician Assistant Surgical ==

== ENCOUNTER 2024-01-07 15:10 | Outpatient (AMB) | payer OTHER, SELFPAY ==
--- NOTE | 2024-01-07 15:17 | MHC.OFFVISWM ---
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 Allergies No Known Allergies Allergy (Verified 08/20/23 16:01) Medication List - Last Reconciled 01/07/24 by JENNIFER Ambriz duloxetine 90 mg PO DAILY fluticasone furoate-vilanterol 100-25 mcg/dose (Breo Ellipta) 1 inh inhalation DAILY fluticasone propionate 50 mcg/actuation (Allergy Relief (fluticasone)) 1 spray intranasal DAILY ipratropium-albuterol 0.5 mg-3 mg(2.5 mg base)/3 mL 3 mL inhalation QID PRN ipratropium-albuterol 20-100 mcg/actuation (Combivent Respimat) 1 puff inhalation Q6H PRN lorazepam 1 mg PO BEDTIME montelukast 10 mg PO BEDTIME HPI Comments Details: This?a?47?yo female who is s/p LSG without hiatal hernia repair on?07/04/2023. Presents for 6 month post op visit. Weight today is 135.8 pounds, with a BMI of 25.2. There has been a 102.8 pound weight loss,(initial weight 238.6 pounds) since starting the program on 03/04/2023 reflecting a 43 % total body weight loss and a weight loss of 53.2 pounds since surgery (operative weight 189 pounds) reflecting a 28.1 % TBWL since surgery. No complaints of nausea, emesis, abdominal pain or reflux. Reports infrequent but normal bowel movements every 2-3 days . Started celebrate MVI last week 1 daily She states that she has been doing very well overall, feels amazing and is very satisfied with her progress. She has been waking up in the middle of the night to go to the bathroom as well as to take the dog out. During this time she finds herself going to the snack closet to have a protein bar. Present meal plan includes: 8-10 celebrate 4 in 1 shake with 1/2 scoop in 8 oz of almond milk 11-1 zone perfect bar 2-4 another shake 6pm meal with 5 forks of protein and 5 forks of cooked vegetables, 8-10 zone perfect bar Drinking 72 oz water ? Exercise routine includes: treadmill 15 incline 3.4 speed, two 1/2 hr sessions 5-6 days per week, 850 lexis, [employer] Any post op complications: none LINDA: never DM: never HTN: resolved Hyperlipidemia: never GERD:?0-5 scale ??0 = no symptoms ??1 = symptoms noticeable but not bothersome 2 =symptoms bothersome but not daily ? 3 = symptoms bothersome and daily 4 = symptoms affect daily activities 5 = symptoms are incapacitating, unable to do daily activities ? How bad is the heartburn: 0 ? Heartburn while lying down: 0 ? Heartburn when standing up: 0 ? Heartburn after meals: 0 ? Does heartburn change your diet: 0 ? Does heartburn wake you up from sleep: 0 ? Do you have difficulty swallowin ? Do you have pain with swallowin ? If you take medicine for your reflux, does this affect your daily life: 0 Satisfaction with present condition - satisfied or not satisfied: satisfied [facility] Medical History BMI 37.0-37.9, adult BMI 38.0-38.9,adult BMI 39.0-39.9,adult Arthritis Asthma DJD (degenerative joint disease) Anxiety Depression GERD (gastroesophageal reflux disease) Hypertension Morbid obesity Surgical History S/P laparoscopic sleeve gastrectomy Hx of cholecystectomy Hx of wisdom tooth extraction Hx of toe surgery Family History Mother Hypertension Osteoarthritis Father Diabetes Hypertension Son Asthma Son No problems noted. Social History Household Members: None Housing: House Do you presently have visiting nurse or other home services: No Alcohol intake: current Alcohol intake frequency: holidays/special occasions only Patient Tobacco Use Status: Former Tobacco user Quit Date: 7YRS AGO service: No Physical Exam Vital Signs: Last Vital Signs Temp 98.1 F 01/07/24 15:28 Pulse 75 01/07/24 15:28 BP 111/74 01/07/24 15:28 Pulse Ox 97 01/07/24 15:28 Oxygen Delivery Method Room Air 01/07/24 15:28 BMI result Body Mass Index 25.2 Const General: cooperative and no acute distress Orientation/consciousness: patient oriented x3 Resp Effort & Inspection: normal respiratory effort Auscultation: clear to auscultation bilaterally Cardio Rate: regular rate Rhythm: regular rhythm GI Inspection: Yes normal to inspection and Yes incision (well healed) Palpation (GI): Soft to palpation and no masses Skin Other: Excess skin of the arms and abdomen without rash Neuro General: patient oriented x3 Assessment & Plan Assessment & Plan (1) S/P laparoscopic sleeve gastrectomy: Code(s): Z98.84 - Bariatric surgery status Category: Surgical Plan: Patient has made excellent progress. We will check six-month postoperative labs. Change meal plans slightly: 8-10 celebrate 4 in 1 shake with 1 scoop in 8 oz of almond milk 11-1 zone perfect bar 2-4 another bar 6pm meal with 7 forks of protein and 7 forks of cooked vegetables, 8-10 1/2 zone perfect bar She is exercising vigorously and will continue as such. Follow-up in office 6 weeks Orders: Orders H Pylori Breath Test Today E53.8 - Deficiency of other specified B group vitamins, E55.9 - Vitamin D deficiency, unspecified, E66.3 - Overweight, I10 - Essential (primary) hypertension, K74.00 - Hepatic fibrosis, unspecified, Z98.84 - Bariatric surgery status Complete Blood Count Auto Diff Today E53.8 - Deficiency of other specified B group vitamins, E55.9 - Vitamin D deficiency, unspecified, E66.3 - Overweight, I10 - Essential (primary) hypertension, K74.00 - Hepatic fibrosis, unspecified, Z98.84 - Bariatric surgery status Lipid Panel Today E53.8 - Deficiency of other specified B group vitamins, E55.9 - Vitamin D deficiency, unspecified, E66.3 - Overweight, I10 - Essential (primary) hypertension, K74.00 - Hepatic fibrosis, unspecified, Z98.84 - Bariatric surgery status Zinc Today E53.8 - Deficiency of other specified B group vitamins, E55.9 - Vitamin D deficiency, unspecified, E66.3 - Overweight, I10 - Essential (primary) hypertension, K74.00 - Hepatic fibrosis, unspecified, Z98.84 - Bariatric surgery status C Reactive Protein Today E53.8 - Deficiency of other specified B group vitamins, E55.9 - Vitamin D deficiency, unspecified, E66.3 - Overweight, I10 - Essential (primary) hypertension, K74.00 - Hepatic fibrosis, unspecified, Z98.84 - Bariatric surgery status Ferritin Today E53.8 - Deficiency of other specified B group vitamins, E55.9 - Vitamin D deficiency, unspecified, E66.3 - Overweight, I10 - Essential (primary) hypertension, K74.00 - Hepatic fibrosis, unspecified, Z98.84 - Bariatric surgery status Vitamin D 25-OH Total Today E53.8 - Deficiency of other specified B group vitamins, E55.9 - Vitamin D deficiency, unspecified, E66.3 - Overweight, I10 - Essential (primary) hypertension, K74.00 - Hepatic fibrosis, unspecified, Z98.84 - Bariatric surgery status Insulin Today E53.8 - Deficiency of other specified B group vitamins, E55.9 - Vitamin D deficiency, unspecified, E66.3 - Overweight, I10 - Essential (primary) hypertension, K74.00 - Hepatic fibrosis, unspecified, Z98.84 - Bariatric surgery status Hemoglobin A1c Today E53.8 - Deficiency of other specified B group vitamins, E55.9 - Vitamin D deficiency, unspecified, E66.3 - Overweight, I10 - Essential (primary) hypertension, K74.00 - Hepatic fibrosis, unspecified, Z98.84 - Bariatric surgery status IRON PROFILE Today E53.8 - Deficiency of other specified B group vitamins, E55.9 - Vitamin D deficiency, unspecified, E66.3 - Overweight, I10 - Essential (primary) hypertension, K74.00 - Hepatic fibrosis, unspecified, Z98.84 - Bariatric surgery status Vitamin B12 and Folate Today E53.8 - Deficiency of other specified B group vitamins, E55.9 - Vitamin D deficiency, unspecified, E66.3 - Overweight, I10 - Essential (primary) hypertension, K74.00 - Hepatic fibrosis, unspecified, Z98.84 - Bariatric surgery status Vitamin B1 Today E53.8 - Deficiency of other specified B group vitamins, E55.9 - Vitamin D deficiency, unspecified, E66.3 - Overweight, I10 - Essential (primary) hypertension, K74.00 - Hepatic fibrosis, unspecified, Z98.84 - Bariatric surgery status Vitamin A Today E53.8 - Deficiency of other specified B group vitamins, E55.9 - Vitamin D deficiency, unspecified, E66.3 - Overweight, I10 - Essential (primary) hypertension, K74.00 - Hepatic fibrosis, unspecified, Z98.84 - Bariatric surgery status TSH reflex Free T4 Today E53.8 - Deficiency of other specified B group vitamins, E55.9 - Vitamin D deficiency, unspecified, E66.3 - Overweight, I10 - Essential (primary) hypertension, K74.00 - Hepatic fibrosis, unspecified, Z98.84 - Bariatric surgery status Basic Metabolic Panel Today E53.8 - Deficiency of other specified B group vitamins, E55.9 - Vitamin D deficiency, unspecified, E66.3 - Overweight, I10 - Essential (primary) hypertension, K74.00 - Hepatic fibrosis, unspecified, Z98.84 - Bariatric surgery status
[2024-01-07 15:28] VITALS: BP 111/74; PULSE 75; TEMP 36.7; O2SAT 97; BMI 25.2
== END 2024-01-07 16:01 | disposition home or self-care (01) ==
PROVIDERS: PCP Student in an Organized Health Care Education/Training Program; Visit Provider Physician Assistant Surgical
DX: E66.3 Overweight (principal); Z68.25 Body mass index [BMI] 25.0-25.9, adult; Z90.3 Acquired absence of stomach [part of]; Z98.84 Bariatric surgery status
CPT/HCPCS: 99214

== ENCOUNTER → 2024-01-07 15:10 | Outpatient (BNVA) | payer OTHER, SELFPAY | PROVIDERS: PCP Student in an Organized Health Care Education/Training Program; Visit Provider Physician Assistant Surgical ==

== ENCOUNTER 2024-02-14 07:44 | Outpatient (REF) | payer OTHER, SELFPAY ==
[2024-02-14 08:11] LABS: MANUAL DIFF FLAG NO
[2024-02-14 08:13] LABS: Basophils Percent Auto 0.7 % (0-2); Eosinophils Absolute Auto 0.1 X10*3/uL (0.0-0.4); Eosinophils Percent Auto 2.4 % (0-4); Hematocrit 39.4 % (37.0-47.0); Hemoglobin 13.4 g/dl (12.0-16.0); Imm Gran Abs Auto 0.03 X10*3/uL (0.00-0.03); Imm Gran Pct Auto 0.5 % (0.0-0.4); Lymphocytes Absolute Auto 2.3 X10*3/uL (1.2-4.9); Lymphocytes Percent Auto 41.6 % (20-40); Mean Platelet Volume 9.1 fL (9.4-12.3); Monocytes Absolute Auto 0.5 X10*3/uL (0.1-1.2); Monocytes Percent Auto 8.4 % (2-11); Neutrophils Absolute Auto 2.5 x10*3/uL (2.0-8.3); Neutrophils Percent Auto 46.4 % (45-73); Platelet Count 204 X10*3/uL (160-400); Red Blood Count 4.19 X10*6/uL (4.20-5.50); Red Cell Distribution Width 12.3 % (11.0-16.0); White Blood Count 5.5 X10*3/uL (4.8-10.8)
[2024-02-14 08:25] LABS: Estimated Average Glucose 94 mg/dL; Hemoglobin A1c % 4.9 % (<6.0)
[2024-02-14 08:33] LABS: Anion Gap 10 (12-20); Blood Urea Nitrogen 18 mg/dL (9-16); C Reactive Protein 0.14 mg/dL (< or = 0.50); Calcium 9.3 mg/dL (8.4-10.2); Carbon Dioxide 28 mmol/L (22-29); Chloride 108 mmol/L (96-108); Cholesterol 186 mg/dL (<200); Estimated Glomerular Filt Rate > 60; Glucose Random 88 mg/dL (60-115); HDL Cholesterol 66 mg/dL (>40); Iron 135 mcg/dL (30-160); LDL Cholesterol Calculated 112 mg/dL (<100); Percent Iron Saturation 40 % (15-50); Potassium 3.8 mmol/L (3.3-5.1); Sodium 142 mmol/L (135-145); Total Iron Binding Capacity 341 mcg/dL (228-428); Triglycerides 40 mg/dL (<150); Unsaturated Iron Binding 206 ug/dL
[2024-02-14 08:53] LABS: Ferritin 53 ng/mL (10-250); Insulin 8 uU/mL (2-29); TSH reflex Free T4 0.71 uIU/mL (0.32-4.0); Vitamin D 25-OH Total 64.1 ng/mL (>30)
[2024-02-14 09:02] LABS: Vitamin B12 1673 pg/mL (200-900)
[2024-02-18 12:18] LABS: Zinc 94 mcg/dL (60-130)
[2024-02-19 17:28] LABS: Vitamin A 37 mcg/dL (38-98)
[2024-02-20 15:28] LABS: Vitamin B1 56 nmol/L (8-30)
== END 2024-02-14 07:45 | disposition home or self-care (01) ==
LOC: HO.LAB 07:44
PROVIDERS: PCP Student in an Organized Health Care Education/Training Program; Visit Provider Physician Assistant Surgical
DX: I10 Essential (primary) hypertension (principal); E55.0 Rickets, active; E53.8 Deficiency of other specified B group vitamins; K74.00 Hepatic fibrosis, unspecified; Z98.84 Bariatric surgery status; E66.3 Overweight
CPT/HCPCS: 36415; 80048; 80061; 82306; 82607; 82728; 82746; 83036; 83525; 83540; 84425; 84443; 84590; 84630; 85025; 86140

== ENCOUNTER → 2024-02-17 15:41 | Outpatient (BNVA) | payer OTHER, SELFPAY | PROVIDERS: PCP Student in an Organized Health Care Education/Training Program; Visit Provider Physician Assistant Surgical ==

== ENCOUNTER 2024-03-23 12:03 | Outpatient (AMB) | payer OTHER, SELFPAY ==
--- NOTE | 2024-03-23 09:22 | MHC.OFFVISWM ---
VS Expanded 03/23/24 09:23 Height 5 ft 1.5 in Weight 145 lb 9.6 oz BMI 27.1 Body Fat % 34.1 Body Fat Mass 49.6 Fat Free Mass 96 Visceral Fat Rating 11 Body Water % 45.2 Body Water Mass 65.8 Muscle Mass/Score 90.2 Basal Metabolic Rate/Score 1,324 Intake Visit Reasons: (TV) PO LSG 07/04/23 [employer] Required: No Allergies No Known Allergies Allergy (Verified 08/20/23 16:01) Medication List - Last Reconciled 03/23/24 by JENNIFER Ambriz duloxetine 90 mg PO DAILY fluticasone furoate-vilanterol 100-25 mcg/dose (Breo Ellipta) 1 inh inhalation DAILY fluticasone propionate 50 mcg/actuation (Allergy Relief (fluticasone)) 1 spray intranasal DAILY ipratropium-albuterol 0.5 mg-3 mg(2.5 mg base)/3 mL 3 mL inhalation QID PRN ipratropium-albuterol 20-100 mcg/actuation (Combivent Respimat) 1 puff inhalation Q6H PRN lorazepam 1 mg PO BEDTIME montelukast 10 mg PO BEDTIME HPI Comments Details: This?a?47?yo female who is s/p LSG without hiatal hernia repair on?07/04/2023. Presents for 9 month post op visit. Weight today is 145.6 pounds, with a BMI of 27.1. There has been a 93 pound weight loss,(initial weight 238.6 pounds) since starting the program on 03/04/2023 reflecting a 38.9 % total body weight loss and a weight loss of 43.4 pounds since surgery (operative weight 189 pounds) reflecting a 22.9 % TBWL since surgery. No complaints of nausea, emesis, abdominal pain or reflux. Reports infrequent but normal bowel movements every 2-3 days . Started celebrate MVI last week 1 daily She states that she has been doing very well overall, she has been focusing on weight training at the gym and she has not been following the meal plan exactly. She states she didn't feel good or like how she looked at 135 pounds. She feels much better at her current weight. States her goal is 140-145 pounds. meal plan: vandidier arthuri in the morning sandwich for lunch food for dinner Recommended meal plan includes: 8-10 celebrate 4 in 1 shake with 1/2 scoop in 8 oz of almond milk 11-1 zone perfect bar 2-4 or 3-5 another shake 6pm meal with 5 forks of protein and 5 forks of cooked vegetables, 8-10 zone perfect bar Drinking 72 oz water ? Exercise routine includes: treadmill 15 incline 3.4 speed, two 1/2 hr sessions 5 days per week, [employer] [facility] Medical History BMI 37.0-37.9, adult BMI 38.0-38.9,adult BMI 39.0-39.9,adult Arthritis Asthma DJD (degenerative joint disease) Anxiety Depression GERD (gastroesophageal reflux disease) Hypertension Morbid obesity Surgical History S/P laparoscopic sleeve gastrectomy Hx of cholecystectomy Hx of wisdom tooth extraction Hx of toe surgery Family History Mother Hypertension Osteoarthritis Father Diabetes Hypertension Son Asthma Son No problems noted. Social History Household Members: None Housing: House Do you presently have visiting nurse or other home services: No Alcohol intake: current Alcohol intake frequency: holidays/special occasions only Patient Tobacco Use Status: Former Tobacco user service: No Telehealth Telehealth Telehealth Platform: Telephone Location of provider rendering services: practice address Location of patient: address on file Patient Identification confirmed using: Name, : Yes Telehealth method: voice only Patient verbally consented to treatment: Yes Patient verbally consented to billing insurance company: Yes Patient informed of any privacy concerns related to visit: Yes Minutes spent on Phone/Video with Pt.: 18 Assessment & Plan Assessment & Plan (1) Overweight (BMI 25.0-29.9): Code(s): E66.3 - Overweight Category: Medical Plan: Patient lost track and was not following a meal plan. She had been doing weightlifting at the gym exclusively, not using any of the cardio machines. We will make some adjustments: Meal plan: 8-10 celebrate 4 in 1 shake with 1 scoop in 8 oz of almond milk 11-1 aloha or fulfil bar 2-4 or 3-5 another shake 6pm meal with 5 forks of protein and 5 forks of cooked vegetables, 8-10 1/2 c fresh fruit if needed Discussed continuing her weight training although resuming 1/2 hour of cardio daily after her weight training routine. She states her goal is approximately 140-145 lb. We will have her return to the office in approximately a month with the understanding that she should text her weight weekly with increased communication by text if necessary for any questions or concerns.
[2024-03-23 09:23] VITALS: BMI 27.1
== END 2024-03-23 12:05 | disposition home or self-care (01) ==
LOC: HO.HBS 12:03
PROVIDERS: PCP Student in an Organized Health Care Education/Training Program; Visit Provider Physician Assistant Surgical
DX: E66.3 Overweight (principal)
CPT/HCPCS: 99213

== ENCOUNTER → 2024-03-23 12:03 | Outpatient (BNVA) | payer OTHER, SELFPAY | PROVIDERS: PCP Student in an Organized Health Care Education/Training Program; Visit Provider Physician Assistant Surgical ==

== ENCOUNTER 2024-04-21 13:29 | Outpatient (AMB) | payer OTHER, SELFPAY ==
--- NOTE | 2024-04-21 08:18 | A.OFFVIS_ITS ---
VS Expanded 04/21/24 08:23 Height 5 ft 1.5 in Weight 151 lb 4 oz BMI 28.1 Body Fat % 35.8 Body Fat Mass 54.2 Fat Free Mass 97.2 Visceral Fat Rating 12 Body Water % 44 Body Water Mass 66.6 Muscle Mass/Score 91.4 Basal Metabolic Rate/Score 1,313 Intake Visit Reasons: (TV) PO LSG 07/04/23 Allergies No Known Allergies Allergy (Verified 08/20/23 16:01) HPI Comments Details: This?a?47?yo female who is s/p LSG without hiatal hernia repair on?07/04/2023. Presents for 10 month post op visit. Weight today is 151.4 pounds, with a BMI of 28.1. There has been a 87.2 pound weight loss,(initial weight 238.6 pounds) since starting the program on 03/04/2023 reflecting a 36.5 % total body weight loss and a weight loss of 37.6 pounds since surgery (operative weight 189 pounds) reflecting a 19.8 % TBWL since surgery. No complaints of nausea, emesis, abdominal pain or reflux. Reports infrequent but normal bowel movements every 2-3 days . Started celebrate MVI last week 1 daily. Not following shakes or bars. She states she stopped following the plans at 135 as she felt she didn't like the way she looked. She is exercising She states that she has been doing very well overall, she has been focusing on weight training at the gym and she has not been following the meal plan exactly. She states she didn't feel good or like how she looked at 135 pounds. She feels much better at her current weight. States her goal is 140-145 pounds. meal plan: 8-10 celebrate 4 in 1 shake with 1 scoop in 8 oz of almond milk 11-1 aloha or fulfil bar 2-4 or 3-5 another shake 6pm meal with 5 forks of protein and 5 forks of cooked vegetables, 8-10 1/2 c fresh fruit if needed Drinking 72 oz water ? Exercise routine includes: treadmill 15 incline 3.4 speed, two 1/2 hr sessions 2 days per week, 400 calories [employer] 3 days per week HIIT training [facility] Medical History BMI 37.0-37.9, adult BMI 38.0-38.9,adult BMI 39.0-39.9,adult Arthritis Asthma DJD (degenerative joint disease) Anxiety Depression GERD (gastroesophageal reflux disease) Hypertension Morbid obesity Surgical History S/P laparoscopic sleeve gastrectomy Hx of cholecystectomy Hx of wisdom tooth extraction Hx of toe surgery Family History Mother Hypertension Osteoarthritis Father Diabetes Hypertension Son Asthma Son No problems noted. Social History Household Members: None Housing: House Do you presently have visiting nurse or other home services: No Alcohol intake: current Alcohol intake frequency: holidays/special occasions only Patient Tobacco Use Status: Former Tobacco user service: No Telehealth Telehealth Telehealth Platform: Telephone Location of provider rendering services: practice address Location of patient: address on file Patient Identification confirmed using: Name, : Yes Telehealth method: voice only Patient verbally consented to treatment: Yes Patient verbally consented to billing insurance company: Yes Patient informed of any privacy concerns related to visit: Yes Minutes spent on Phone/Video with Pt.: 15 Assessment & Plan Assessment & Plan (1) Overweight (BMI 25.0-29.9): Code(s): E66.3 - Overweight Category: Medical Plan: Patient has lost all interest and has not been following any meal plan. We discussed the importance of following a meal plan and she will restart the plan as listed above. Additionally, she will discuss with her behavioral health therapist being seen more frequently than once a month. She has been having difficulty sleeping, previously using lorazepam at night. She will discuss this with her behavioral health therapist. Additionally, discussed increasing exercise to 3 days a week doing cardio and 3 days a week doing the HIIT regimen. Return to clinic 1 month. Text weekly with any questions or concerns.
[2024-04-21 08:23] VITALS: BMI 28.1
== END 2024-04-21 13:46 | disposition home or self-care (01) ==
LOC: HO.HBS 13:29
PROVIDERS: PCP Student in an Organized Health Care Education/Training Program; Visit Provider Physician Assistant Surgical
DX: E66.3 Overweight (principal)
CPT/HCPCS: 99213

== ENCOUNTER → 2024-04-21 13:29 | Outpatient (BNVA) | payer OTHER, SELFPAY | PROVIDERS: PCP Student in an Organized Health Care Education/Training Program; Visit Provider Physician Assistant Surgical | DX: E66.3 Overweight (principal) ==